=== PATIENT | male | born 1950 | race Caucasian/White ===

== ENCOUNTER → 2018-03-23 | Outpatient (CLI) | payer MEDICARE, BC ==
[2013-06-27 12:50] VITALS: BP 144/79
[~2018-03-23] MED LIST: AMLO1TAB14 PO; ATOR40TA59 PO; CELE200C PO; CYCL10TA2 PO; DIPH25CA58 PO; DOCU-109 PO; LORA10TA3 PO; METO100T7 PO; MULT-245 PO; OMEP20TA8 PO; OXYC1TAB15 PO; ROPI1TAB PO; TRIA10.8 NS; VITA80003 PO; methylPREDNISolone ACETATE 40 MG/ML VIAL. IM ONE
--- NOTE | 2018-03-23 15:05 | KCIC ---
ULTRASOUND-GUIDED BICEPS TENDON INJECTION Clinical indications: Upper right arm pain and bicipital groove tenderness. Biceps tendinitis. PROCEDURE: The procedure and possible complications including bleeding and infection and allergic reaction were explained. The patient provided both verbal and written consent. A timeout was performed which confirmed the name of the patient and date of and the type of the procedure and the side of the procedure. All questions were answered. Allergies to medications were reviewed. No allergies to medications utilized today. Sonography of the upper right arm was performed which identified the biceps tendon within the bicipital groove. Appropriate skin elbert was made. This area was prepped and draped in the usual sterile fashion with Betadine. 2 cc of 1% lidocaine was utilized for local anesthesia. Using sterile technique and ultrasound guidance, a 25-gauge needle was directed down into the posterior edge of the bicipital groove. 2 cc of 1% lidocaine was injected under ultrasound guidance. Following this, 40 mg of Depo-Medrol in 1 cc was injected into the tendon sheath under ultrasound surveillance. Sonographic spot images were performed. The needle was removed and hemostasis was deemed adequate. Sterile Band-Aid was applied to the puncture site after cleaning of the upper right arm. The patient tolerated the procedure well without complication. IMPRESSION: Ultrasound-guided upper right arm biceps tendon sheath injection was performed without complication. Electronically signed by: Dutch Rosales MD (03/23/2018 3:02 PM) [facility]2
== END | disposition home or self-care (01) ==
LOC: KCIC US 13:50
PROVIDERS: ATTEND Orthopaedic Surgery Sports Medicine
DX: M75.21 Bicipital tendinitis, right shoulder (principal); I10 Essential (primary) hypertension; J44.9 Chronic obstructive pulmonary disease, unspecified; Z88.2 Allergy status to sulfonamides; Z88.5 Allergy status to narcotic agent; Z98.890 Other specified postprocedural states; Z87.442 Personal history of urinary calculi
CPT/HCPCS: 20550; 76942; J1030; 20611

== ENCOUNTER → 2019-03-16 | Outpatient (CLI) | payer MEDICARE, BC ==
[2013-06-27 12:50] VITALS: BP 144/79
[~2019-03-16] MED LIST changes: +LOPE2TAB27 PO; +NAPR220T70 PO; -methylPREDNISolone ACETATE 40 MG/ML VIAL. IM ONE
--- NOTE | 2019-03-16 18:52 | KCIC ---
ULTRASOUND-GUIDED BICEPS TENDON SHEATH INJECTION ON THE RIGHT SIDE Clinical indications: Upper right arm pain and bicipital groove tenderness. Biceps tendinitis. PROCEDURE: The procedure and possible complications including bleeding and infection and allergic reaction were explained. The patient provided both verbal and written consent. A timeout was performed which confirmed the name of the patient and date of and the type of the procedure and the side of the procedure. All questions were answered. Allergies to medications were reviewed. No allergies to medications utilized today. Sonography of the upper right arm was performed which identified the biceps tendon within the bicipital groove. Appropriate skin elbert was made. This area was prepped and draped in the usual sterile fashion with Betadine. 2 cc of 1% lidocaine was utilized for local anesthesia. Using sterile technique and ultrasound guidance, a 25-gauge needle was directed down into the posterior edge of the bicipital groove. A solution containing 1 cc of 1% lidocaine and 1 cc of 0.5% Marcaine and 1 cc (40 mg) of Depo-Medrol was injected into the tendon sheath under ultrasound surveillance. Sonographic spot images were performed. The needle was removed and hemostasis was deemed adequate. Sterile Band-Aid was applied to the puncture site after cleaning of the upper right arm. The patient tolerated the procedure well without complication and was given instructions to refrain from heavy lifting tonight. IMPRESSION: Ultrasound-guided upper right arm biceps tendon sheath injection was performed without complication. Follow-up will be with the patient's physician. ULTRASOUND-GUIDED BICEPS TENDON INJECTION ON THE LEFT SIDE Clinical indications: Upper left arm pain and bicipital groove tenderness. Biceps tendinitis. PROCEDURE: The procedure and possible complications including bleeding and infection and allergic reaction were explained. The patient provided both verbal and written consent. A timeout was performed which confirmed the name of the patient and date of and the type of the procedure and the side of the procedure. All questions were answered. Allergies to medications were reviewed. No allergies to medications utilized today. Sonography of the upper left arm was performed which identified the biceps tendon within the bicipital groove. Appropriate skin elbert was made. This area was prepped and draped in the usual sterile fashion with Betadine. 2 cc of 1% lidocaine was utilized for local anesthesia. Using sterile technique and ultrasound guidance, a 25-gauge needle was directed down into the posterior edge of the bicipital groove. A solution containing 1 cc of 1% lidocaine and 1 cc of 0.5% Marcaine and 1 cc (40 mg) of Depo-Medrol was injected into the tendon sheath under ultrasound surveillance. Sonographic spot images were performed. The needle was removed and hemostasis was deemed adequate. Sterile Band-Aid was applied to the puncture site after cleaning of the upper left arm. The patient tolerated the procedure well without complication and was given instructions to refrain from heavy lifting tonight. IMPRESSION: Ultrasound-guided upper left arm biceps tendon sheath injection was performed without complication. Follow-up will be with the patient's physician. Electronically signed by: Dutch Rosales MD (03/16/2019 4:09 PM) [facility]-KCIC2
== END | disposition home or self-care (01) ==
LOC: KCIC US 13:12
PROVIDERS: ATTEND Orthopaedic Surgery Sports Medicine
DX: M75.22 Bicipital tendinitis, left shoulder (principal); M75.21 Bicipital tendinitis, right shoulder
CPT/HCPCS: 20550; 20611; 76942

== ENCOUNTER → 2019-03-21 | Outpatient (CLI) | payer MEDICARE, BC ==
[2013-06-27 12:50] VITALS: BP 144/79
[2019-03-21 09:38] LABS: BASO # 0.1 x10^3/uL (0.0-0.2); BASO % 1 % (0-3); EOS # 0.3 x10^3/uL (0.0-0.7); EOS % 4 % (0-3); HEMATOCRIT 43.2 % (39.0-53.0); HEMOGLOBIN 14.7 g/dL (13.0-17.5); LYMPH # 3.4 x10^3/uL (1.0-4.8); LYMPH % 42 % (24-48); MEAN CORPUSCULAR HEMOGLOBIN 30 pg (25-35); MEAN CORPUSCULAR HGB CONC 34 g/dL (31-37); MEAN CORPUSCULAR VOLUME 89 fL (79-100); MONO # 0.7 x10^3/uL (0.0-1.1); MONO % 8 % (0-9); NEUT # 3.6 x10^3/uL (1.8-7.7); NEUT % 44 % (31-73); PLATELET COUNT 223 x10^3/uL (140-400); RED BLOOD COUNT 4.88 x10^6/uL (4.30-5.70); RED CELL DISTRIBUTION WIDTH 13.3 % (11.5-14.5)
[2019-03-21 09:47] LABS: PROTHROMBIN TIME PATIENT 13.2 SEC (11.7-14.0)
[2019-03-21 10:20] LABS: ALBUMIN 3.9 g/dL (3.4-5.0); CALCIUM 9.1 mg/dL (8.5-10.1); GFR 74.1; POTASSIUM 3.5 mmol/L (3.5-5.1)
--- NOTE | 2019-03-21 13:03 | EKG ---
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
--- NOTE | 2019-03-21 15:52 | RAD ---
AP and Lateral Views of the Chest 03/21/2019 8:59 AM Indication: Preoperative Comparison: None Findings: Linear opacity either in the lingula or middle lobe suggesting discoid atelectasis. No other acute consolidation or infiltrate is seen. No pneumothorax or effusion is seen. Heart size is normal. Bony thorax is intact. IMPRESSION: Discoid atelectasis either within the lingula or lobe. Otherwise no evidence of acute cardiopulmonary process. Electronically signed by: Prashanth Rios MD (03/21/2019 3:19 PM) [facility]
== END | disposition home or self-care (01) ==
LOC: SURGPAT 13:08
PROVIDERS: ATTEND Orthopaedic Surgery Sports Medicine
DX: Z01.818 Encounter for other preprocedural examination (principal); M17.11 Unilateral primary osteoarthritis, right knee; J98.4 Other disorders of lung; Z79.2 Long term (current) use of antibiotics
CPT/HCPCS: 36415; 71046; 80048; 82040; 82306; 83036; 85025; 85610; 85651; 85730; 87641; 93005

== ENCOUNTER 2019-04-11 06:07 | Inpatient (IN) | payer MEDICARE, BC ==
[2019-04-11] VITALS (7 sets, daily range): BP systolic 128–158; BP diastolic 70–83
[~2019-04-11] VITALS: Ht 177.8 cm; Wt 98.4 kg
[~2019-04-11 06:07] MED LIST changes: +ACETAMINOPHEN 500 MG TABLET PO PRN; +GABAPENTIN 300 MG CAPSULE. PO PRN; +MELOXICAM 7.5 MG TABLET PO PRN; +MORPHINE SULFATE 5 MG, KETOROLAC 30MG VIAL 30 MG, ROPIVacaine 0.5% PF 60 ML, EPINEPHrin... INT ART ONE; +TRANEXAMIC ACID 1,000 MG in IV NS 50ML -- 1ST BAG INJ ONE
[2019-04-11] MEDS ORDERED: CELECOXIB 100 MG CAPSULE. ONE (06:27)
[2019-04-11] MEDS ORDERED: PROCHLORPERAZINE 10 MG/2 ML VIAL. IV PRN (07:00)
[2019-04-11] MEDS ORDERED: fentaNYL PF VIAL 100 MCG/2 ML VIAL IV PRN ×2 (07:00→07:45)
[2019-04-11] MEDS ORDERED: LIDOCAINE 1% PF 2 ML VIAL. ID PRN (07:00)
[2019-04-11] MEDS ORDERED: ONDANSETRON PF 4 MG/2 ML VIAL. IV PRN (07:00)
[2019-04-11] MEDS ORDERED: IV RINGERS,LACTATED 1000ML 1,000 ML IV SCH (07:00)
[2019-04-11] MEDS ORDERED: HYDROmorphone 2 MG/ML VIAL IV PRN (07:00)
[2019-04-11] MEDS ORDERED: LIDOCAINE 2% PF 5 ML VIAL. ONE (07:12)
[2019-04-11] MEDS ORDERED: fentaNYL PF VIAL 100 MCG/2 ML VIAL ONE (07:12)
[2019-04-11] MEDS ORDERED: DEXAMETHASONE SOD PHOS 4 MG/ML VIAL ONE (07:12)
[2019-04-11] MEDS ORDERED: ONDANSETRON PF 4 MG/2 ML VIAL. ONE (07:12)
[2019-04-11] MEDS ORDERED: PROPOFOL 20 ML IV ONE (07:12)
[2019-04-11] MEDS: CELECOXIB 100 MG CAPSULE. PO SCH ×2 (07:26→21:05)
[2019-04-11] MEDS: GABAPENTIN 300 MG CAPSULE. PO SCH ×3 (07:32→21:06)
[2019-04-11] MEDS ORDERED: IV NORMAL SALINE 1000ML BAG 1,000 ML IV SCH (07:37)
[2019-04-11] MEDS ORDERED: diphenhydrAMINE 50 MG/ML VIAL IV PRN (07:45)
[2019-04-11] MEDS ORDERED: METOCLOPRAMIDE HCL 10 MG/2 ML VIAL. IV PRN (07:45)
[2019-04-11] MEDS ORDERED: MORPHINE SULFATE 2 MG/ML VIAL. IV PRN (07:45)
[2019-04-11] MEDS ORDERED: PROCHLORPERAZINE 5 MG TABLET. PO PRN (07:45)
[2019-04-11] MEDS ORDERED: ZOLPIDEM 5 MG TABLET. PO PRN (07:45)
[2019-04-11] MEDS ORDERED: CALCIUM CARBONATE 500 MG TAB.CHEW PO PRN (07:45)
[2019-04-11] MEDS ORDERED: DEXTROSE 50% 25 GM / 50ML DISP.SYRIN. IV PRN (07:45)
[2019-04-11] MEDS ORDERED: 0.9 % SODIUM CHLORIDE 10 ML DISP.SYRIN. IV PRN (07:45)
[2019-04-11 07:46] LABS: PROTHROMBIN TIME PATIENT 13.1 SEC (11.7-14.0)
[2019-04-11] MEDS ORDERED: GLYCOPYRROLATE 1 MG/5 ML VIAL. ONE (07:59)
[2019-04-11] MEDS: INSULIN LISPRO 300 UNITS/3 ML VIAL. SQ SCH ×3 (08:00→17:23)
[2019-04-11] MEDS ORDERED: TRANEXAMIC ACID 1,000 MG in IV NS 50ML -- 2ND BAG INJ ONE (08:00)
[2019-04-11] MEDS: LOSARTAN POTASSIUM 50 MG TABLET. PO SCH (09:00)
[2019-04-11] MEDS ORDERED: VALSARTAN PO SCH (09:00)
[2019-04-11] MEDS: LOPERAMIDE 2 MG CAPSULE PO SCH ×2 (09:00→21:06)
[2019-04-11] MEDS ORDERED: METOPROLOL TARTRATE 100 MG PO SCH (09:00)
[2019-04-11] MEDS ORDERED: MULTIVITAMIN with MINERAL TABLET. PO SCH (09:00)
[2019-04-11] MEDS: amLODIPine BESYLATE 5 MG TABLET PO SCH (09:00)
[2019-04-11] MEDS ORDERED: AMLODIPINE PO SCH (09:00)
[2019-04-11] MEDS ORDERED: ePHEDrine PF IN SALINE 50 MG/10 ML SYRINGE. IV ONE (09:13)
[2019-04-11] MEDS ORDERED: SEVOFLURANE 61 TO 120 MINUTES. IH ONE (09:13)
[2019-04-11] MEDS ORDERED: PHENYLEPHRINE in 0.9% NACL PF 1 MG/10 ML SYRINGE. IV ONE (09:13)
--- NOTE | 2019-04-11 09:38 | PDOC4 ---
Operative Note Operative Note Date of procedure: 04/11/19 Surgeon: Topher Escalante.: Travis Bernal, BLAS Ramirez Preoperative diagnosis: Advanced primary right knee degenerative joint disease Postoperative diagnosis: Same Procedure performed: Right total knee arthroplasty, using robotic assistance Anesthesia: Gen. Findings: Advanced primary right knee degenerative joint disease Tourniquet time: 69 minutes Blood loss: 75 mL Complications: None Components inserted: Downs and nephew size 7 Journey II cobalt chrome right femur, 23 mm biconvex patella, 9 mm thick polyethylene articular insert, size 5 journey tibial baseplate Reason for procedure: Patient is a very pleasant male whose right knee has been hurting more and interfering with his activities of daily living. He had undergone a left knee arthroplasty in the past. We had tried a rehabilitation program, intra-articular injections, and despite these interventions his pain was still severe progressive and therefore we had a discussion of the risks, benefits, and alternatives to proceeding with the right side today and he wished to do this. Description of procedure: Patient was greeted in the preoperative holding area by myself for the correct extremity was verified and marked. He was taken back to the operative suite and his antibiotics were started as he was brought back. Once in the operating room, he was transferred gently supine to the operative table and secured the bed with successful induction of a general anesthetic. All pressure points were padded. Examination under anesthesia demonstrated range of motion from 5 to 140. Knee was stable to varus and valgus. Nonsterile tourniquet was taped in place to his right upper thigh. Padded rest was secured to the bed at his hip as well as across foot of the bed to maintain his leg at 90 passively. Right lower extremity was then prepped and draped in our usual sterile fashion including an Ioban [place]on. We then conducted our standard preoperative timeout. I then palpated and marked surface anatomy and chanel a line from my standard anterior midline skin incision. Extremity was exsanguinated with an Esmarch and tourniquet was insufflated to 250 mmHg. Skin was incised with a scalpel and dissected subcutaneous tissue and cauterized bleeders with electrocautery. I identified his quadriceps tendon, borders of her patellar patellar tendon and tibial tubercle. I then made my standard medial parapatellar arthrotomy. The knee was then flexed and the cruciates were excised. I then palpated and marked Whitesides line and the epicondylar axis with electrocautery. After this, I placed my robotic guidance pins unit cortically at the distal femur and tibia. I made stab incisions and spread down to bone and then placed the pins unicortically under power. After this, I proceeded with capturing range of motion and testing stability as well as the hip center of rotation using the robotic assistance. I then painted the distal femur and proximal tibia until enough data had been gathered. I then confirmed the robotic plan, making some small adjustments to the femoral component flexion. After this, I used the rica to remove the distal femur followed by burring my holes for my distal femoral cutting block, I then impacted the stylus in these as well. After this, I impacted my distal femoral 5 in 1 cutting block and secured it with threaded pins and made my distal femoral cuts. I then removed the cutting block and the loose bony pieces. I next directed my attention to using the top hat on the robotic rica, and using this to guide placement of my proximal tibial cutting block which I then pinned into position. I protected the collaterals and had a posterior retractor and is well. I made my proximal tibial cut and deliver this from the operative field. I then proceeded to trial the above size tibial baseplate, I selected the 5. I then impacted this into position referencing his tibial tubercle for rotation. I then drilled and punched for the tibial baseplate. I then directed my attention back to the femur and impacted my trial femoral component position, secured it with a pin and reamed and punched for the cam portion. I then applied and secured the cam portion in place. After this, I trialed the 9 mm trial polyethylene and was happy with the range of motion and stability. Range of motion was 0-140. Knee was stable to varus and valgus in extension and mid flexion. I then directed my attention to reaming for my patella, with all components and he had full range of motion, good stability and excellent patellar tracking. I then removed all trial components and thoroughly irrigated the bony surfaces and then proceeded to cement in place the tibial component followed by the femoral component. Care was taken to remove excess cement. A trial articular insert was then engaged into position and the cement was allowed to polymerize with the leg in extension. I again checked for any excess cement. The patellar button was clamped in place and secured with cement. I then injected my periarticular mixture into the janie-incisional soft tissue envelope. The tourniquet was let down, bleeders were cauterized. He had a fair amount of oozing from the exposed bony surfaces and I elected to place a 1/8 inch Hemovac exiting superolaterally from her knee. After this, the arthrotomy was closed with simple interrupted #1 Vicryl with the exception of a xdimim-en-greyb proximally. Arthrotomy closure tested in flexion and no extravasation of blood was noted. Inverted interrupted 2 was used for subcutaneous tissue and running 3 -0 Monocryl in a buried subcuticular fashion was used for skin. Prior to wound closure all counts correct 2. At the conclusion of the surgery, leg was cleansed and dried and our incisional wound vacuum was applied. Surgery was tolerated well by the patient. He was awakened from anesthesia and transferred gently supine to the hospital bed and taken to the PACU in a stable and extub ated condition. Postoperative plan is to admit him to the floor, weightbearing as tolerated, he will receive DVT and antibiotic prophylaxis. He will also receive PT and OT. TOPHER FELIPE II, MD Apr 11, 2019 09:37
[2019-04-11] MEDS: fentaNYL PF VIAL 100 MCG/2 ML VIAL IV PRN ×2 (10:31→10:37)
[2019-04-11] MEDS: MORPHINE SULFATE 2 MG/ML VIAL. IV PRN ×2 (10:41→10:57)
--- NOTE | 2019-04-11 10:50 | RAD ---
2 view study of the right knee Clinical indications: Postoperative exam. FINDINGS: Total right knee arthroplasty is evident which is well aligned. No acute fracture or lytic process is seen. IMPRESSION: Total right knee arthroplasty. Electronically signed by: Dutch Rosales MD (04/11/2019 10:47 AM) [facility] [place]
--- NOTE | 2019-04-11 11:36 | NUR ---
received from recovery. he has a dry hacky cough.he has good sensation, pulses and motion bilateral lower extremities. at bedside He is rating his pain 4-5". Addendum: 04/11/19 at 1242 by ANGELINA VARELA RN Riky ramos diabetic
[2019-04-11] MEDS ORDERED: BENZOCAINE/MENTHOL LOZENGE. PO PRN (11:45)
[2019-04-11] MEDS: ONDANSETRON PF 4 MG/2 ML VIAL. IV SCH ×2 (12:00→17:39)
[2019-04-11] MEDS: CHOLECALCIFEROL (VITAMIN D3) 5,000 UNIT CAPSULE PO SCH (12:56)
[2019-04-11] MEDS: MULTIVITAMIN with MINERAL TABLET. PO SCH (12:56)
[2019-04-11] MEDS: CETIRIZINE HCL 10 MG TABLET. PO SCH (12:56)
[2019-04-11] MEDS: SENNOSIDES/DOCUSATE 8.6/50MG TABLET. PO SCH (12:56)
[2019-04-11] MEDS: ONDANSETRON ODT 4 MG TAB.RAPDIS. PO SCH ×2 (12:56→17:22)
[2019-04-11] MEDS: oxyCODONE IR 5 MG TABLET PO PRN ×3 (12:57→22:49)
--- NOTE | 2019-04-11 13:10 | NUR ---
haylie is more awake and oriented. states that his bood sugar was high the last time that his blood was checked pre-admission. was placed on metformin which triggered his Crohn's and caused more problems. was taken off metformin and not placed on anything. explained that would check his blood sugar prior to supper. possibility it is up because of the steroid. might give insulin until bood sugar regulated--verbalized understanding
[2019-04-11] MEDS ORDERED: WARFARIN 7.5 MG TABLET. PO ONE (16:00)
[2019-04-11] MEDS: FERROUS SULFATE 325 MG TABLET. PO SCH (17:21)
--- NOTE | 2019-04-11 18:36 | NUR ---
AMBULATED TO THE BATHROOM TO VOID. UNABLE TO URINATE AT THIS TIME. TOLERATED SUPPER WELL. HE IS RATING HIS PAIN A "4" AT THIS TIME.
--- NOTE | 2019-04-11 20:15 | NUR ---
pt stated been attempting to urinate feeling bladder pressure stated has not voided for 15 hours last time he voids before surgery bladder scan done showing greater than 999ml straight cath patient per protocol using aseptic technique obtained 1400ml yellow urine
[2019-04-11] MEDS: METOPROLOL TART IMMED RELEASE 50 MG TABLET. PO SCH (21:00)
[2019-04-11] MEDS ORDERED: ATORVASTATIN CALCIUM 40 MG TABLET. PO SCH (21:00)
[2019-04-11] MEDS: rOPINIRole 1 MG TABLET. PO SCH (21:06)
[2019-04-12 02:52] VITALS: BP 147/73
[2019-04-12 05:02] LABS: HEMATOCRIT 35.3 % (39.0-53.0)
[2019-04-12 05:05] LABS: PROTHROMBIN TIME PATIENT 14.5 SEC (11.7-14.0)
[2019-04-12] MEDS: ONDANSETRON ODT 4 MG TAB.RAPDIS. PO SCH ×2 (06:00)
[2019-04-12] MEDS ORDERED: MAGNESIUM HYDROXIDE 2,400 MG/30 ML ORAL.SUSP. PO PRN (06:00)
[2019-04-12] MEDS: ONDANSETRON PF 4 MG/2 ML VIAL. IV SCH ×2 (06:00)
[2019-04-12 06:26] VITALS: BP 135/72
[2019-04-12] MEDS: PANTOPRAZOLE 40 MG TABLET.DR. PO SCH (07:01)
[2019-04-12] MEDS: INSULIN LISPRO 300 UNITS/3 ML VIAL. SQ SCH ×3 (08:00→17:00)
[2019-04-12] MEDS: FERROUS SULFATE 325 MG TABLET. PO SCH ×2 (08:24→17:00)
[2019-04-12] MEDS: GABAPENTIN 300 MG CAPSULE. PO SCH ×3 (08:25→21:00)
[2019-04-12] MEDS: CHOLECALCIFEROL (VITAMIN D3) 5,000 UNIT CAPSULE PO SCH (08:25)
[2019-04-12] MEDS: CELECOXIB 100 MG CAPSULE. PO SCH ×2 (08:25→08:45)
[2019-04-12] MEDS: ATORVASTATIN CALCIUM 40 MG TABLET. PO SCH (08:26)
[2019-04-12] MEDS: ACETAMINOPHEN 500 MG TABLET PO SCH ×3 (08:26→21:01)
[2019-04-12] MEDS: MULTIVITAMIN with MINERAL TABLET. PO SCH (08:26)
[2019-04-12] MEDS: LOPERAMIDE 2 MG CAPSULE PO SCH ×2 (08:26→21:00)
[2019-04-12] MEDS: METOPROLOL TART IMMED RELEASE 50 MG TABLET. PO SCH (08:29)
[2019-04-12] MEDS: oxyCODONE IR 5 MG TABLET PO PRN ×2 (08:29→11:59)
--- NOTE | 2019-04-12 08:39 | PDOC ---
ORTHO PROGRESS NOTES Subjective Patient feels like he is doing well, he underwent a right total knee arthroplasty yesterday. No particular concerns Vitals Vital Signs Date Time Temp Pulse Resp B/P (MAP) Pulse Ox O2 Delivery O2 Flow Rate FiO2 04/12/19 06:26 98.0 82 16 135/72 (93) 100 Nasal Cannula 2.0 98.0 Labs Laboratory Tests Test 04/11/19 07:00 04/11/19 17:08 04/11/19 20:46 04/12/19 04:45 Prothrombin Time 13.1 SEC (11.7-14.0) 14.5 SEC (11.7-14.0) Prothromb Time International Ratio 1.0 (0.8-1.1) 1.2 (0.8-1.1) Activated Partial Thromboplast Time 36 SEC (24-38) Glucose (Fingerstick) 156 mg/dL (70-99) 174 mg/dL (70-99) Hemoglobin 12.0 g/dL (13.0-17.5) Hematocrit 35.3 % (39.0-53.0) Mean Corpuscular Hemoglobin Concent 34 g/dL (31-37) Test 04/12/19 06:20 Glucose (Fingerstick) 123 mg/dL (70-99) Laboratory Tests Test 04/11/19 17:08 04/11/19 20:46 04/12/19 04:45 04/12/19 06:20 Glucose (Fingerstick) 156 mg/dL (70-99) 174 mg/dL (70-99) 123 mg/dL (70-99) Hemoglobin 12.0 g/dL (13.0-17.5) Hematocrit 35.3 % (39.0-53.0) Mean Corpuscular Hemoglobin Concent 34 g/dL (31-37) Prothrombin Time 14.5 SEC (11.7-14.0) Prothromb Time International Ratio 1.2 (0.8-1.1) Notes He is awake and alert and lying in bed. Dressing is intact and fairly dry. He can wiggle his toes, normal sensation right lower extremity. Assessment and Plan He will continue Coumadin, PT and OT today. We will adjust his pain medicine as necessary. We will changes admission status to inpatient. I appreciate his primary care provider been willing to assist with his postoperative care. FLOYD FELIPE II, MD Apr 12, 2019 08:39
[2019-04-12] MEDS: LOSARTAN POTASSIUM 50 MG TABLET. PO SCH ×2 (08:44→21:02)
[2019-04-12] MEDS: SENNOSIDES/DOCUSATE 8.6/50MG TABLET. PO SCH (08:44)
[2019-04-12] MEDS: amLODIPine BESYLATE 5 MG TABLET PO SCH ×2 (08:44→21:06)
[2019-04-12] MEDS: CETIRIZINE HCL 10 MG TABLET. PO SCH ×2 (08:45→21:00)
--- NOTE | 2019-04-12 11:07 | NUR ---
Pharmacy Warfarin Dosing Note S:Pharmacy consulted to assist with anticoagulation therapy started 04/11/19 with target INR: 1.6 - 2.5 O:CARLOS SPRING is a 68 year old M with TKA LABS: Last INR: 1.2 Last HGB: 12.0 Last HCT: 35.3 Last PLT: Last dose of 7.5 mg given on 04/11/19 at 1721 Previous Regimen: Vitamin K given: Drug Interaction Changes: Ongoing Drug Interactions: A:INR of 1.2 is below desired range. Target range for this patient is: 1.6 - 2.5 P: Warfarin dose: 5 mg Today at 1600 Bridge Therapy: None Next INR due 04/13/19. Pharmacy anticoagulation service will continue to follow. BAILEE KURTZ RPH, 04/12/19 [id number]
[2019-04-12] MEDS ORDERED: ONDANSETRON ODT 4 MG TAB.RAPDIS. PO PRN (12:00)
[2019-04-12] MEDS ORDERED: ONDANSETRON PF 4 MG/2 ML VIAL. IV PRN (12:00)
[2019-04-12] MEDS ORDERED: BISACODYL 10 MG SUPP.RECT. PR PRN (16:00)
[2019-04-12] MEDS ORDERED: WARFARIN 5 MG TABLET. PO ONE (16:00)
[2019-04-12 18:00] VITALS: BP 148/72
--- NOTE | 2019-04-12 19:30 | NUR ---
Riky is sitting up in recliner. he Hemovac accidently got pulled apart earlier. Hemovac removed ; tolerated well. cleansed with chlor prep then Aquacel foam applied. he is rating his pain 4-5. medicated with thomas. bilateral Willie hose applied. he has good sensation, pulses and motion bilateral lower extremities.
[2019-04-12] MEDS: rOPINIRole 1 MG TABLET. PO SCH (21:00)
--- NOTE | 2019-04-12 23:24 | NUR ---
states he is still uncomfortable. pain unchanged. medicated with morphine 2 mg. ready for bed.
[2019-04-13] MEDS: ACETAMINOPHEN 500 MG TABLET PO SCH ×4 (02:09→21:05)
[2019-04-13] MEDS: oxyCODONE IR 5 MG TABLET PO PRN ×5 (02:10→21:06)
--- NOTE | 2019-04-13 03:58 | CONS ---
DATE OF CONSULTATION: 04/12/2019 CHIEF COMPLAINT AND HISTORY OF PRESENT ILLNESS: This 68-year-old white male is well known to me from followup in the office for many years. He was admitted on the day prior to admission for right total knee replacement by Dr. Gallegos for end-stage osteoarthritis. He was medically cleared through my office before the same. PAST MEDICAL HISTORY: Remarkable for glasses, bilateral cataract surgery, history of prior C3-C4 laminectomy. He has a history of Crohn's disease, kidney stones, bilateral carpal tunnel repairs, bilateral rotator cuff repairs and prior inguinal hernia repair. MEDICATIONS: Brought with the patient, listed on the computer and have been addressed. ALLERGIES: HE IS ALLERGIC TO SULFA. FAMILY HISTORY: Positive for lung cancer, breast cancer, hypertension. SOCIAL HISTORY: Noncontributory. REVIEW OF SYSTEMS: Remarkable for decent pain control following surgery, still has regional anesthesia in the legs though at the time of my examination the morning after surgery. PHYSICAL EXAMINATION: GENERAL: He is a well-developed, well-nourished white male in no acute distress. VITAL SIGNS: Stable. He is afebrile. HEAD, EYES, EARS, NOSE AND THROAT: Unremarkable. NECK: Supple, without thyromegaly. CHEST: Clear to auscultation and percussion. HEART: Regular rate and rhythm without S3, S4 or murmur. ABDOMEN: Soft, nontender, without hepatosplenomegaly or masses. EXTREMITIES: Without cyanosis, clubbing, edema. NEUROLOGIC: He is intact. LABORATORY DATA: Hemoglobin is 12.0 this morning. Sugars have been in the 120s. INR is 1.2. IMPRESSION: 1. Status post right total knee replacement, on anticoagulation. 2. Postoperative anemia, mild. 3. Crohn's disease. 4. Other problems listed above. PLAN: We will follow with you medically postoperative period for problems as they could arise. TAI ZAMBRANO MD DR: LUPE/emely JOB#: [id number] / [id number] FLOYD Staton MD
[2019-04-13 06:00] VITALS: BP 143/75
--- NOTE | 2019-04-13 06:38 | NUR ---
patient had a restless night. up to the bathroom every 2-3 hrs . states "I dont get up this much as home. appears to void large amount. ambulated to the bathroom ; states he feels like he empties his bladder.
[2019-04-13] MEDS: INSULIN LISPRO 300 UNITS/3 ML VIAL. SQ SCH ×3 (08:00→17:00)
[2019-04-13] MEDS: LOPERAMIDE 2 MG CAPSULE PO SCH ×2 (09:00→21:00)
[2019-04-13] MEDS: SENNOSIDES/DOCUSATE 8.6/50MG TABLET. PO SCH (09:00)
[2019-04-13] MEDS: TAMSULOSIN 0.4 MG CAP.ER.24H. PO SCH (09:17)
[2019-04-13] MEDS: CHOLECALCIFEROL (VITAMIN D3) 5,000 UNIT CAPSULE PO SCH (09:19)
[2019-04-13] MEDS: CELECOXIB 100 MG CAPSULE. PO SCH (09:19)
[2019-04-13] MEDS: GABAPENTIN 300 MG CAPSULE. PO SCH ×3 (09:19→21:04)
[2019-04-13] MEDS: ATORVASTATIN CALCIUM 40 MG TABLET. PO SCH (09:19)
[2019-04-13] MEDS: MULTIVITAMIN with MINERAL TABLET. PO SCH (09:19)
[2019-04-13] MEDS: FERROUS SULFATE 325 MG TABLET. PO SCH ×2 (09:19→16:44)
[2019-04-13] MEDS: METOPROLOL TART IMMED RELEASE 50 MG TABLET. PO SCH (09:22)
[2019-04-13 10:06] LABS: HEMATOCRIT 37.9 % (39.0-53.0); HEMOGLOBIN 12.9 g/dL (13.0-17.5)
[2019-04-13 10:17] LABS: PROTHROMBIN TIME PATIENT 15.1 SEC (11.7-14.0)
--- NOTE | 2019-04-13 11:07 | NUR ---
Pharmacy Warfarin Dosing Note S:Pharmacy consulted to assist with anticoagulation therapy started 04/11/19 with target INR: 1.6 - 2.5 O:CARLOS SPRING is a 68 year old M with TKA LABS: Last INR: 1.2 Last HGB: 12.9 Last HCT: 37.9 Last PLT: Last dose of 5 mg given on 04/12/19 at 1645 Previous Regimen: Vitamin K given: Drug Interaction Changes: Ongoing Drug Interactions: A:INR of 1.2 is below desired range. Target range for this patient is: 1.6 - 2.5 P: Warfarin dose: 5 mg Today at 1600 Bridge Therapy: None Next INR due 04/14/19. Pharmacy anticoagulation service will continue to follow. BAILEE KURTZ RPH, 04/13/19 [id number]
--- NOTE | 2019-04-13 12:26 | DISCH ---
DISCHARGE INSTRUCTIONS Condition on Discharge Condition on Discharge: Stable Activity After Discharge Activity Instructions for Disc: Other, see below Bathing Instructions: No Tub Bath until see Lifting Instructions after Dis: No heavy lifting, No pulling or pushing, Do not lift >10 pounds Exercise Instruction after Dis: Walk 10 min, 3 x per day, Walk 15 min, 3 x per day, Walk 30 min, 3 x per week Diet after Discharge Diet after Discharge: Regular Wound Incision Care Wound/Incision Care: Ice to area for comfort, Keep wound/cast CDI, Do not abebe e dressing Contacting the after DC Call your doctor for: Concerns you may have Follow-Up Follow up with: Rosy in 2 wks Warfarin Follow-Up Warfarin Follow UP: Pharmacy FLOYD FELIPE II, MD Apr 13, 2019 12:26
[2019-04-13] MEDS ORDERED: WARFARIN 5 MG TABLET. PO ONE (16:00)
--- NOTE | 2019-04-13 17:06 | PATHOLOGY ---
[facility] Accession Number: [id number] . 01 Material submitted: . knee - RIGHT KNEE BONE AND SOFT TISSUE. Modifiers: right . 01 Clinical history: . Osteoarthritis . 02 Diagnosis: Segments of bone and soft tissue, robotic right total knee arthroplasty: - Degenerative arthritis. (JPM:[facility] 04/13/2019) QTP 04/13/2019 1310 Local . 02 Electronically signed: . Epi Millan MD, Pathologist NPI- [id number] . 01 Gross description: . The specimen is received in formalin, labeled "Corey Molina, right knee bone and soft tissue". Received are multiple segments of bone, including a fragmented tibial plateau, admixed with soft tissue and meniscus measuring 12.8 x 12.2 x 3.5 cm in aggregate dimensions. The articular surfaces are smooth to granular in appearance with no grossly distinct evidence of eburnation. The specimen is submitted representatively in cassette A1, following decalcification. (CAA; 04/12/2019) QAC/QAC 04/12/2019 1103 Local . 02 Pathologist provided ICD-10: M17.11 . 02 CPT . 256873, 316073 Specimen Comment: A courtesy copy of this report has been sent to [phone], [phone] Specimen Comment: [id number] Specimen Comment: Report sent to / DR ZAMBRANO Performed at: 01 [facility] [address], [place] [id number] MD Haroon Saeed MD Phone: [phone] Performed at: 02 [facility] [address] [place], [place] [id number] MD Epi iMllan MD Phone: [phone]
[2019-04-13 18:38] VITALS: BP 137/76
--- NOTE | 2019-04-13 18:44 | PDOC ---
GENERAL General: vss and afebrile. awake and alert. expected post op pain. chest clear, heart regular, abdomen benign. Hb 12.9 and INR 1.2 this am. bph symptoms with frequent urination and will add flomax trial. with elevated blood sugars will check HbA1C as diagnosis of diabetes was not known prior to admission. VITAL SIGNS/I&O Vital Signs/I&O: Vital Signs Date Time Temp Pulse Resp B/P (MAP) Pulse Ox O2 Delivery O2 Flow Rate FiO2 04/13/19 18:38 98.1 72 18 137/76 (96) 20 98.1 04/13/19 16:44 Room Air 04/12/19 08:30 2.0 I & O 04/12/19 04/12/19 04/13/19 15:00 23:00 07:00 Intake Total 480 ml 440 ml 100 ml Output Total 465 ml 375 ml Balance 15 ml 65 ml 100 ml ALLERGIES Allergies: Allergies Coded Allergies Type Severity Reaction Last Updated Verified Sulfa (Sulfonamide Antibiotics) Allergy Intermediate 04/11/19 Yes MEDS Medications: Current Medications Medications (Trade) Dose Ordered Sig/Kecia Route PRN Reason Start Time Stop Time Status Last Admin Dose Admin Amlodipine Besylate (Norvasc) 5 mg HS PO 04/12/19 21:00 04/12/19 21:06 Cetirizine HCl (ZyrTEC) 10 mg HS PO 04/12/19 21:00 04/12/19 21:00 Losartan Potassium (Cozaar) 100 mg HS PO 04/12/19 21:00 04/12/19 21:02 Tamsulosin HCl (Flomax) 0.4 mg DAILY PO 04/13/19 09:00 04/13/19 09:17 Warfarin Sodium (Coumadin) 5 mg 1X WARF ONCE PO 04/13/19 16:00 04/13/19 16:01 DC 04/13/19 16:40 LAB Lab: Laboratory Tests Test 04/12/19 20:49 04/13/19 07:33 04/13/19 09:43 04/13/19 11:57 Glucose (Fingerstick) 120 mg/dL (70-99) H 106 mg/dL (70-99) H 107 mg/dL (70-99) H Hemoglobin 12.9 g/dL (13.0-17.5) L Hematocrit 37.9 % (39.0-53.0) L Mean Corpuscular Hemoglobin Concent 34 g/dL (31-37) Prothrombin Time 15.1 SEC (11.7-14.0) H Prothrombin Time INR 1.2 (0.8-1.1) H Test 04/13/19 17:07 Glucose (Fingerstick) 114 mg/dL (70-99) H Laboratory Tests 04/13/19 09:43 TAI ZAMBRANO MD Apr 13, 2019 18:44
[2019-04-13] MEDS: LOSARTAN POTASSIUM 50 MG TABLET. PO SCH (21:04)
[2019-04-13] MEDS: rOPINIRole 1 MG TABLET. PO SCH (21:05)
[2019-04-13] MEDS: CETIRIZINE HCL 10 MG TABLET. PO SCH (21:05)
[2019-04-13] MEDS: amLODIPine BESYLATE 5 MG TABLET PO SCH (21:05)
[2019-04-14 02:08] LABS: HEMOGLOBIN A1C 6.8 % (4.8-5.6)
[2019-04-14] MEDS: oxyCODONE IR 5 MG TABLET PO PRN ×2 (04:14→13:08)
[2019-04-14] MEDS: ACETAMINOPHEN 500 MG TABLET PO SCH ×2 (04:14→07:56)
[2019-04-14 04:52] LABS: HEMATOCRIT 35.9 % (39.0-53.0); HEMOGLOBIN 12.1 g/dL (13.0-17.5)
[2019-04-14 05:03] LABS: PROTHROMBIN TIME PATIENT 15.7 SEC (11.7-14.0)
[2019-04-14 06:01] VITALS: BP 142/77
[2019-04-14] MEDS: PANTOPRAZOLE 40 MG TABLET.DR. PO SCH (07:56)
[2019-04-14] MEDS: CHOLECALCIFEROL (VITAMIN D3) 5,000 UNIT CAPSULE PO SCH (07:56)
[2019-04-14] MEDS: TAMSULOSIN 0.4 MG CAP.ER.24H. PO SCH (07:57)
[2019-04-14] MEDS: FERROUS SULFATE 325 MG TABLET. PO SCH (07:57)
[2019-04-14] MEDS: MULTIVITAMIN with MINERAL TABLET. PO SCH (07:57)
[2019-04-14] MEDS: GABAPENTIN 300 MG CAPSULE. PO SCH ×2 (07:57→13:08)
[2019-04-14] MEDS: SENNOSIDES/DOCUSATE 8.6/50MG TABLET. PO SCH (07:57)
[2019-04-14] MEDS: CELECOXIB 100 MG CAPSULE. PO SCH (07:58)
[2019-04-14] MEDS: INSULIN LISPRO 300 UNITS/3 ML VIAL. SQ SCH ×2 (08:00→11:42)
[2019-04-14] MEDS: METOPROLOL TART IMMED RELEASE 50 MG TABLET. PO SCH (08:02)
[2019-04-14] MEDS: ATORVASTATIN CALCIUM 40 MG TABLET. PO SCH (08:04)
[2019-04-14] MEDS: LOPERAMIDE 2 MG CAPSULE PO SCH (08:08)
--- NOTE | 2019-04-14 08:30 | PDOC ---
GENERAL General: vss and afebrile. awake and alert and sitting in chair. sugars good. HbA1C 6.8 and discussed diet, exercise, and weight loss with patient with meds if not controlling. urinating better with flomax. chest clear, heart regular, abdomen benign, nv status leg ok. anticipate dc today. doing well. VITAL SIGNS/I&O Vital Signs/I&O: Vital Signs Date Time Temp Pulse Resp B/P (MAP) Pulse Ox O2 Delivery O2 Flow Rate FiO2 04/14/19 08:02 88 160/94 04/14/19 06:01 97.8 24 93 Room Air 97.8 I & O 04/13/19 04/13/19 04/14/19 15:00 23:00 07:00 Intake Total 360 ml 480 ml Output Total 0 ml 0 ml Balance 360 ml 480 ml 0 ml ALLERGIES Allergies: Allergies Coded Allergies Type Severity Reaction Last Updated Verified Sulfa (Sulfonamide Antibiotics) Allergy Intermediate 04/11/19 Yes MEDS Medications: Current Medications Medications (Trade) Dose Ordered Sig/Kecia Route PRN Reason Start Time Stop Time Status Last Admin Dose Admin Tamsulosin HCl (Flomax) 0.4 mg DAILY PO 04/13/19 09:00 04/14/19 07:57 Warfarin Sodium (Coumadin) 5 mg 1X WARF ONCE PO 04/13/19 16:00 04/13/19 16:01 DC 04/13/19 16:40 LAB Lab: Laboratory Tests Test 04/13/19 09:43 04/13/19 11:57 04/13/19 17:07 04/14/19 04:40 Hemoglobin 12.9 g/dL (13.0-17.5) L 12.1 g/dL (13.0-17.5) L Hematocrit 37.9 % (39.0-53.0) L 35.9 % (39.0-53.0) L Mean Corpuscular Hemoglobin Concent 34 g/dL (31-37) 34 g/dL (31-37) Prothrombin Time 15.1 SEC (11.7-14.0) H 15.7 SEC (11.7-14.0) H Prothrombin Time INR 1.2 (0.8-1.1) H 1.3 (0.8-1.1) H Hemoglobin A1c 6.8 % (4.8-5.6) H Glucose (Fingerstick) 107 mg/dL (70-99) H 114 mg/dL (70-99) H Test 04/14/19 06:41 Glucose (Fingerstick) 97 mg/dL (70-99) Laboratory Tests 04/13/19 09:43 04/14/19 04:40 TAI ZAMBRANO MD Apr 14, 2019 08:30
--- NOTE | 2019-04-14 08:41 | PDOC3 ---
Discharge Summary Visit Information Date of Admission: Apr 11, 2019 Date of Discharge: Apr 14, 2019 Admitting Diagnosis: advanced right knee primary degenerative joint disease Brief Hospital Course Allergies Allergies Coded Allergies Type Severity Reaction Last Updated Verified Sulfa (Sulfonamide Antibiotics) Allergy Intermediate 04/11/19 Yes Vital Signs Vital Signs Date Time Temp Pulse Resp B/P (MAP) Pulse Ox O2 Delivery O2 Flow Rate FiO2 04/14/19 08:02 88 160/94 04/14/19 06:01 97.8 24 93 Room Air 97.8 Lab Results Laboratory Tests Test 04/12/19 11:07 04/12/19 16:27 04/12/19 20:49 04/13/19 07:33 Glucose (Fingerstick) 128 mg/dL (70-99) 117 mg/dL (70-99) 120 mg/dL (70-99) 106 mg/dL (70-99) Test 04/13/19 09:43 04/13/19 11:57 04/13/19 17:07 04/14/19 04:40 Hemoglobin 12.9 g/dL (13.0-17.5) 12.1 g/dL (13.0-17.5) Hematocrit 37.9 % (39.0-53.0) 35.9 % (39.0-53.0) Mean Corpuscular Hemoglobin Concent 34 g/dL (31-37) 34 g/dL (31-37) Prothrombin Time 15.1 SEC (11.7-14.0) 15.7 SEC (11.7-14.0) Prothromb Time International Ratio 1.2 (0.8-1.1) 1.3 (0.8-1.1) Hemoglobin A1c 6.8 % (4.8-5.6) Glucose (Fingerstick) 107 mg/dL (70-99) 114 mg/dL (70-99) Test 04/14/19 06:41 Glucose (Fingerstick) 97 mg/dL (70-99) Laboratory Tests Test 04/13/19 09:43 04/13/19 11:57 04/13/19 17:07 04/14/19 04:40 Hemoglobin 12.9 g/dL (13.0-17.5) 12.1 g/dL (13.0-17.5) Hematocrit 37.9 % (39.0-53.0) 35.9 % (39.0-53.0) Mean Corpuscular Hemoglobin Concent 34 g/dL (31-37) 34 g/dL (31-37) Prothrombin Time 15.1 SEC (11.7-14.0) 15.7 SEC (11.7-14.0) Prothromb Time International Ratio 1.2 (0.8-1.1) 1.3 (0.8-1.1) Hemoglobin A1c 6.8 % (4.8-5.6) Glucose (Fingerstick) 107 mg/dL (70-99) 114 mg/dL (70-99) Test 04/14/19 06:41 Glucose (Fingerstick) 97 mg/dL (70-99) Brief Hospital Course Mr. Molina is a 68 old male who presented to my outpatient orthopedic surgery clinic with complaints of severe and progressive pain that failed conservative therapies including injections. We had a discussion of the risks, benefits, alternatives to total knee arthroplasty and he elected to proceed. He tolerated surgery well cover well from anesthesia in the PACU. He was then taken to the joint Center for care and observation. He did receive PT, OT, DVT and antibiotic prophylaxis. He recovered well from surgery and remained hemodynamically stable and afebrile throughout the hospitalization. Pain was controlled on oral pain medicine at the time of discharge. Good progress was made with therapy throughout the hospitalization, and activities of daily living were accomplished by the patient. The incision was clean dry and intact and the operative extremity had normal motor and sensation. Discharge Information Condition at Discharge: Stable Follow Up: Weeks Disposition/Orders: D/C to Home Scheduled Amlodipine/Valsartan (Exforge 5-320 Mg Tablet) 1 Each Tablet, 1 EACH PO DAILY for BP CONTROL, (Reported) Entered as Reported by: MARC CHEN on 03/23/19 1604 Last Taken: Unknown Dose on 04/10/19 Last Action: Converted on 04/11/19736 by DEMETRI FELIPE MD Atorvastatin Calcium (Atorvastatin Calcium) 40 Mg Tablet, 40 MG PO DAILY, (Reported) Entered as Reported by: MARC CHEN on 06/22/13 1133 Last Taken: Unknown Dose on 04/11/19 0515 Last Action: Continued on 04/11/19736 by DEMETRI FELIPE MD Celecoxib (Celebrex) 200 Mg Capsule, 200 MG PO DAILY, (Reported) Entered as Reported by: MARC CHEN on 06/22/131132 Last Taken: Unknown Dose on 04/10/19 Last Action: Converted on 04/11/19736 by DEMETRI FELIPE MD Loperamide Hcl (Loperamide) 2 Mg Tablet, 2 MG PO BID for CONTROL DIARRHEA, (Reported) Entered as Reported by: MARC CHEN on 03/23/191603 Last Taken: Unknown Dose on 04/11/19514 Last Action: Converted on 04/11/19736 by DEMETRI FELIPE MD Loratadine (Loratadine) 10 Mg Tablet, 10 MG PO DAILY for CONTROL ALLERGIES, (Reported) Entered as Reported by: MARC CHEN on 03/23/191603 Last Taken: Unknown Dose on 04/10/19 Last Action: Converted on 04/11/19736 by DEMETRI FELIPE MD Metoprolol Tartrate (Metoprolol Tartrate) 100 Mg Tablet, 100 MG PO DAILY, (Reported) Entered as Reported by: MARC CHEN on 06/22/131132 Last Taken: Unknown Dose on 04/11/19514 Last Action: Converted on 04/11/19736 by DEMETRI FELIPE MD Multivitamin (Multi Vitamin Daily) 1 Each Tablet, 1 EACH PO DAILY, (Reported) Entered as Reported by: MARC CHEN on 06/22/131132 Last Taken: Unknown Dose on 04/04/19 Last Action: Converted on 04/11/19736 by DEMETRI FELIPE MD Omeprazole (Omeprazole) 20 Mg Tablet.dr, 20 MG PO QODAY, (Reported) Entered as Reported by: MARC CHEN on 06/22/131132 Last Taken: Unknown Dose on 04/11/19514 Last Action: Converted on 04/11/19736 by DEMETRI FELIPE MD Ropinirole Hcl (Requip) 1 Mg Tablet, 3 MG PO HS for CONTROL RESTLESS LEG, (Reported) Entered as Reported by: MARC CHEN on 06/22/131132 Last Taken: Unknown Dose on 04/10/19 Last Action: Continued on 04/11/19736 by DEMETRI FELIPE MD Scheduled PRN Naproxen Sodium (Aleve) 220 Mg Tablet, 220 MG PO PRN BID PRN for PAIN CONTROL, (Reported) Entered as Reported by: MARC GUSTAVO on 03/23/19 1604 Last Taken: Unknown Dose on 04/04/19 Last Action: HELD on 04/11/19 0737 by DEMETRI FELIPE MD Patient Instructions Patient Instructions He'll be discharged home. He has outpatient physical therapy set up. I'll see him back in 2 weeks, he has that appointment set up as well. He can weight-bear as tolerated. Coumadin for 1 month. Worrisome signs and symptoms that should prompt a phone call were discussed and his questions were answered. FLOYD FELIPE II, MD Apr 14, 2019 08:41
--- NOTE | 2019-04-14 09:00 | NUR ---
Riky is doing well. stephen in the recliner. states that he slept better. was not getting up every 1-1.5 to get up to void. blood sugars are well controlled with diet. pain is controlled with oral medication.
[2019-04-14] MEDS ORDERED: WARF7.5T45 PO (10:01)
--- NOTE | 2019-04-14 11:27 | NUR ---
Pharmacy Warfarin Dosing Note S: Pharmacy consulted to assist with anticoagulation therapy started 04/11/19 O: CARLOS SPRING is a 68 year old M with TKA LABS: Last INR: 1.3 Last HGB: 12.1 Last HCT: 35.9 Last PLT: Last dose of 5 mg given on 04/13/19 at 1640 Ongoing Drug Interactions: Celebrex A:INR of 1.3 is below desired range. Patient has received wafarin 7.5 mg x 1 dose (3/2) and 5 mg x 2 doses (3/3-4). Target range for this patient is: 1.6 - 2.5 P: Warfarin dose: 7.5 mg prior to discharge Bridge Therapy: None Next INR due Thursday, April 17 Outpatient pharmacy anticoagulation service will continue to follow. AWAIS TRUJILLO [facility], 04/14/19 112
[2019-04-14] MEDS ORDERED: WARFARIN 7.5 MG TABLET. PO ONE (13:00)
[2019-04-14 15:19] VITALS: BP 113/60
--- NOTE | 2019-04-14 15:42 | NUR ---
reviewed discharge instructions with Riky and . discussed dressing care, medications and follow up with Dr. Gallegos. already has an appt with Jose Armando Bower. script for pain med given. reviewed restrictions to activities of daily living such as dressing, bathing and driving. scripts for pain med and outpatient therapy given. dismissed to home with .
== END 2019-04-14 15:15 | disposition home or self-care (01) | DRG 470 ==
LOC: SURG 06:07 → 4 SOUTHEST 07:37 → OBSVTOIN 13:09
PROVIDERS: ADMIT Orthopaedic Surgery Sports Medicine; ATTEND Orthopaedic Surgery Sports Medicine
PROC: 8E0Y0CZ Robotic Assisted Procedure of Lower Extremity, Open Approach (ICD-10-PCS; 2019-04-11)
PROC: 0SRC0J9 Replacement of Right Knee Joint with Synthetic Substitute, Cemented, Open Approach (ICD-10-PCS; principal; 2019-04-11 07:30)
DX: M17.11 Unilateral primary osteoarthritis, right knee (principal); K50.90 Crohn's disease, unspecified, without complications; Z96.652 Presence of left artificial knee joint; D64.9 Anemia, unspecified; Z80.1 Family history of malignant neoplasm of trachea, bronchus and lung; Z82.49 Family history of ischemic heart disease and other diseases of the circulatory system; Z80.3 Family history of malignant neoplasm of breast; Z88.2 Allergy status to sulfonamides; Z79.01 Long term (current) use of anticoagulants; Z87.442 Personal history of urinary calculi
CPT/HCPCS: 36415; 73560; 82962; 83036; 85014; 85018; 85610; 85730; 86850; 86900; 86901; 88304; 88311; C1713; G0378; G0379; J0171; J0696; J1100; J1815; J1885; J2001; J2270; J2370; J2405; J2704; J2795; J3010; J3490; J7030; 97110; 97116; 97150; 97530; 97535; C1769; Q0162

== ENCOUNTER 2019-05-20 17:18 | Emergency (ER) | payer MEDICARE, BC ==
[~2019-05-20] VITALS: Ht 177.8 cm; Wt 97.7 kg
[~2019-05-20 17:18] MED LIST changes: -ACETAMINOPHEN 500 MG TABLET PO PRN; -GABAPENTIN 300 MG CAPSULE. PO PRN; -MELOXICAM 7.5 MG TABLET PO PRN; -MORPHINE SULFATE 5 MG, KETOROLAC 30MG VIAL 30 MG, ROPIVacaine 0.5% PF 60 ML, EPINEPHrin... INT ART ONE; -TRANEXAMIC ACID 1,000 MG in IV NS 50ML -- 1ST BAG INJ ONE; +WARF7.5T45 PO
[2019-05-20 17:30] VITALS: BP 147/65
--- NOTE | 2019-05-20 17:32 | PHYS DOC ---
Past Medical History Smoking Status: Never Smoker (JAMEL ARCHIBALD APRN) Attending Signature I have participated in the care of this patient and I have reviewed and agree with all pertinent clinical information above including history, exam, and recommendations. (HANSEL NELSON MD) General Adult EDM: Chief Complaint: KNEE INJURY HPI: HPI: Patient is a 68 year old male who presents the ED today to be evaluated for right knee injury. Patient reports being at physical therapy post knee replacement, he slipped and fell down 1 step. Patient denies any loss of consciousness, denies hitting his head on the ground. Reports knee replacement around April 11, 2019 (JAMEL ARCHIBALD APRN) Review of Systems: Review of Systems: Constitutional: Denies fever or chills. [] Musculoskeletal: Reports right knee injury Integument: Denies rash. [] Neurologic: Denies headache, focal weakness or sensory changes. [] Lymphatic: Denies swollen glands. [] Psychiatric: Denies depression or anxiety. [] (JAMEL ARCHIBALD APRN) Heart Score: Risk Factors: Risk Factors: DM, Current or recent (<one month) smoker, HTN, HLP, family history of CAD, obesity. Risk Scores: Score 0 - 3: 2.5% MACE over next 6 weeks - Discharge Home Score 4 - 6: 20.3% MACE over next 6 weeks - Admit for Clinical Observation Score 7 - 10: 72.7% MACE over next 6 weeks - Early Invasive Strategies (JAMEL ARCHIBALD APRN) Allergies: Allergies: Allergies Coded Allergies Type Severity Reaction Last Updated Verified Sulfa (Sulfonamide Antibiotics) Allergy Intermediate 04/11/19 Yes (JAMEL ARCHIABLD APRN) Physical Exam: PE: Constitutional: Well developed, well nourished, no acute distress, non-toxic appearance. [] Skin: Warm, dry, no erythema, no rash. [] Back: No tenderness, no CVA tenderness. [] Extremities: Right knee with no obvious deformity. Surgical incision noted on the right anterior knee, incision is well approximated, no signs of infection. Limited range of motion to the right knee. +2 right pedal pulse. Cap refill less than 2 seconds the right lower extremity. Neurologic: Alert and oriented X 3, normal motor function, normal sensory function, no focal deficits noted. [] Psychologic: Affect normal, judgement normal, mood normal. [] (JAMEL ARCHIBALD APRN) EKG: EKG: [] (JAMEL ARCHIBALD APRN) Radiology/Procedures: Radiology/Procedures: PROCEDURE: KNEE RIGHT 3V Study: CR KNEE RIGHT 3V Indication: Fall. Knee pain. Comparison: 04/11/2019 Findings: Status post total right knee arthroplasty. Femur and tibia ghost tracks are again noted. The hardware is intact. No periprosthetic fracture. Small foci of mineralization adjacent to the lateral tibial tray were present previously. Soft tissue prominence at the suprapatellar recess could represent a knee joint effusion or postoperative synovial thickening. Rounded increased density posterior to the distal femur is nonspecific but may represent a Watson's cyst. Prominence of the soft tissues along the medial aspect of the knee and distal thigh as well as along the anterior aspect of the distal thigh. Impression: 1. Status post total right knee arthroplasty without hardware complication or periprosthetic fracture. 2. Either a suprapatellar knee joint effusion or postoperative synovial thickening. 3. Nonspecific soft tissue prominence at the medial and anterior distal thigh/knee. Radiography findings which could represent a Watson's cyst. Electronically signed by: LAUREN WRIGHT MD (05/20/2019 5:46 PM) [id number] DICTATED and SIGNED BY: LAUREN WRIGHT MD DATE: 05/20/191745 (JAMEL ARCHIBALD APRN) Course & Med Decision Making: Course & Med Decision Making Pertinent Labs and Imaging studies reviewed. (See chart for details) This is a 68-year-old male patient presenting to the ED today with right knee injury. Patient fell down 1 step at physical therapy. Right knee x-rays interpreted by radiologist are negative for any acute findings. Noted for possible small joint effusion, Watson's cyst. Saul bandage applied to the right knee and the knee immobilizer by the ED RN, neurovascular exam is intact. Ice elevation encouraged. Follow-up with orthopedic doctor next week as scheduled (JAMEL ARCHIBALD APRN) Dragon Disclaimer: Dragon Disclaimer: This electronic medical record was generated, in whole or in part, using a voice recognition dictation system. (JAMEL ARCHIBALD APRN) Departure Departure Impression: Primary Impression: Fall Qualified Codes: W19.XXXA - Unspecified fall, initial encounter Additional Impression: Right knee pain Qualified Codes: M25.561 - Pain in right knee Disposition: 01 HOME, SELF-CARE Condition: STABLE Referrals: TAI ZAMBRANO MD (PCP) follow up next week FLOYD FELIPE II, MD Patient Instructions: Knee Pain, [id number] Additional Instructions: You were seen for right knee injury, your right knee x-rays are negative for any acute findings. Follow-up with orthopedic doctor next week. Try to ice and elevate the extremity. JAMEL ARCHIBALD [employer]IC[employer] May 20, 2019 17:32 HANSEL NELSON MD May 20, 2019 18:35
--- NOTE | 2019-05-20 17:49 | RAD ---
Study: CR KNEE RIGHT 3V Indication: Fall. Knee pain. Comparison: 04/11/2019 Findings: Status post total right knee arthroplasty. Femur and tibia ghost tracks are again noted. The hardware is intact. No periprosthetic fracture. Small foci of mineralization adjacent to the lateral tibial tray were present previously. Soft tissue prominence at the suprapatellar recess could represent a knee joint effusion or postoperative synovial thickening. Rounded increased density posterior to the distal femur is nonspecific but may represent a Watson's cyst. Prominence of the soft tissues along the medial aspect of the knee and distal thigh as well as along the anterior aspect of the distal thigh. Impression: 1. Status post total right knee arthroplasty without hardware complication or periprosthetic fracture. 2. Either a suprapatellar knee joint effusion or postoperative synovial thickening. 3. Nonspecific soft tissue prominence at the medial and anterior distal thigh/knee. Radiography findings which could represent a Watson's cyst. Electronically signed by: LAUREN WRIGHT MD (05/20/2019 5:46 PM) [id number]
== END 2019-05-20 18:36 | disposition home or self-care (01) ==
LOC: ER 17:18
DX: M25.561 Pain in right knee (principal); G89.11 Acute pain due to trauma; Z88.2 Allergy status to sulfonamides; W10.8XXA Fall (on) (from) other stairs and steps, initial encounter; Y93.89 Activity, other specified; Y92.89 Other specified places as the place of occurrence of the external cause; Y99.8 Other external cause status
CPT/HCPCS: 29505; 73562; 99283

== ENCOUNTER 2019-05-26 11:30 | Observation (INO) | payer MEDICARE, BC ==
[~2019-05-26] VITALS: Ht 177.8 cm; Wt 102.4 kg
[2019-05-26] MEDS ORDERED: TAMS0.4C97 PO (12:00)
[2019-05-26] MEDS ORDERED: CETI10TA24 PO (12:00)
[2019-05-26] MEDS ORDERED: ACET500T68 PO (12:00)
[2019-05-30] VITALS (10 sets, daily range): BP systolic 123–146; BP diastolic 50–79
[2019-05-30] MEDS ORDERED: MORPHINE SULFATE 5 MG, KETOROLAC 30MG VIAL 30 MG, ROPIVacaine 0.5% PF 60 ML, EPINEPHrin... INT ART ONE ×5 (06:00)
[2019-05-30] MEDS ORDERED: MORPHINE SULFATE 2 MG/ML VIAL. IV PRN (07:00)
[2019-05-30] MEDS ORDERED: fentaNYL PF VIAL 100 MCG/2 ML VIAL IV PRN (07:00)
[2019-05-30] MEDS ORDERED: IV RINGERS,LACTATED 1000ML 1,000 ML IV SCH (07:00)
[2019-05-30] MEDS ORDERED: LIDOCAINE 1% PF 2 ML VIAL. ID PRN (07:00)
[2019-05-30] MEDS ORDERED: HYDROmorphone 2 MG/ML VIAL IV PRN (07:00)
[2019-05-30] MEDS ORDERED: PROCHLORPERAZINE 10 MG/2 ML VIAL. IV PRN (07:00)
[2019-05-30] MEDS ORDERED: ONDANSETRON PF 4 MG/2 ML VIAL. IV PRN (07:00)
[2019-05-30] MEDS ORDERED: ROCURONIUM 50 MG/5 ML VIAL. ONE (09:41)
[2019-05-30] MEDS ORDERED: GLYCOPYRROLATE 1 MG/5 ML VIAL. ONE (09:41)
[2019-05-30] MEDS ORDERED: fentaNYL PF VIAL 100 MCG/2 ML VIAL ONE (09:41)
[2019-05-30] MEDS ORDERED: PROPOFOL 20 ML IV ONE (09:41)
[2019-05-30] MEDS ORDERED: NEOSTIGMINE METHYLSULFATE 5 MG/5 ML SYRINGE. ONE (09:41)
[2019-05-30] MEDS ORDERED: SEVOFLURANE > 120 MINUTES. IH ONE (09:41)
[2019-05-30] MEDS ORDERED: ONDANSETRON PF 4 MG/2 ML VIAL. ONE (09:42)
[2019-05-30] MEDS ORDERED: DEXAMETHASONE SOD PHOS 4 MG/ML VIAL ONE (09:42)
[2019-05-30] MEDS ORDERED: LIDOCAINE 2% PF 5 ML VIAL. ONE (09:42)
[2019-05-30] MEDS ORDERED: 0.9 % SODIUM CHLORIDE 10 ML DISP.SYRIN. IV PRN (10:45)
[2019-05-30] MEDS ORDERED: diphenhydrAMINE 50 MG/ML VIAL IVP PRN (10:45)
[2019-05-30] MEDS ORDERED: CALCIUM CARBONATE 500 MG TAB.CHEW PO PRN (10:45)
[2019-05-30] MEDS ORDERED: METOCLOPRAMIDE HCL 10 MG/2 ML VIAL. IVP PRN (10:45)
[2019-05-30] MEDS ORDERED: DEXTROSE 50% 25 GM / 50ML DISP.SYRIN. IV PRN (10:45)
[2019-05-30] MEDS ORDERED: PROCHLORPERAZINE 5 MG TABLET. PO PRN (10:45)
[2019-05-30] MEDS ORDERED: MORPHINE SULFATE 2 MG/ML VIAL. IVP PRN (10:45)
[2019-05-30] MEDS ORDERED: fentaNYL PF VIAL 100 MCG/2 ML VIAL IVP PRN (10:45)
[2019-05-30] MEDS ORDERED: NON FORMULARY ITEM (Naproxen Sodium (Aleve) 220 MG) PO PRN (10:45)
[2019-05-30] MEDS ORDERED: ZOLPIDEM 5 MG TABLET. PO PRN (10:45)
[2019-05-30] MEDS ORDERED: ePHEDrine PF IN SALINE 50 MG/10 ML SYRINGE. IV ONE (10:46)
[2019-05-30] MEDS ORDERED: PHENYLEPHRINE in 0.9% NACL PF 1 MG/10 ML SYRINGE. IV ONE (10:46)
[2019-05-30] MEDS ORDERED: VASOPRESSIN 20 UNIT/ML VIAL. ONE (10:55)
--- NOTE | 2019-05-30 11:49 | PDOC4 ---
Operative Note Operative Note Date of procedure: 05/30/2019 Surgeon: Topher Felipe Desktop Operator: Travis Bernal and Garo Ramirez Preoperative diagnosis: Right total knee arthrotomy dehiscence Postoperative diagnosis: Same Procedure performed: #1 arthrotomy repair of right total knee arthroplasty left 2. Irrigation and debridement right total knee Anesthesia: General Findings: Patient had dehisced approximately 8 cm of the superior portion of his arthrotomy, he then tore through his medial retinaculum, the distal portion of the arthrotomy was intact Complications: None Blood loss: 25 mL Tourniquet time: Less than 60 minutes Specimens: Aspiration and tissue was sent for culture Reason for procedure: Patient is a very pleasant gentleman who underwent total knee arthroplasty with myself 6 weeks ago and had been recovering very well. After a therapy session, he was descending several flights of stairs and lost his footing, he fell and hyperflexed his knee and has had increased pain with swelling and difficulty straightening his knee since then. Please see my outpatient notes for full details. I had discussion of the risks, benefits, alternatives and he wished to proceed. Description of procedure: Patient was greeted in the preoperative area by myself or the correct extremity was verified and marked. He was taken to the operative suite and once in the operating room, he was administered IV antibiotics and transferred gently supine to the operating table and secured to the bed with all pressure points padded. He then underwent a successful induction of a general anesthetic. We then proceeded to apply a nonsterile tourniquet to his right upper thigh and taped it in place. Right lower extremity was then prepped and draped in her usual sterile fashion including an Ioban sandwich and we conducted our standard preoperative timeout. After this, the extremity was exsanguinated with an Esmarch and tourniquet insufflated to 250 mmHg. I then incised skin through his prior skin incision centered over the palpable defect after I performed an aspiration through a superolateral portal. At this point, I noted a large amount of hematoma in the subcutaneous tissue. I was able to digitally palpate for the dehiscence. I then irrigated this out with pulsatile lavage for improved visualization. After this, I debrided some of the hematoma and clot. I then inspected the remainder of his arthrotomy dehiscence with above-noted findings. After this, I took my tissue samples and sent them off. I then debrided the edges of the rupture to freshen them up. I think continued my irrigation throughout the operative field in total knee. After this, I began to close the arthrotomy with #1 and #2 Ethibond in a simple interrupted fashion. I did place a 1/8 inch Hemovac exiting superolaterally prior to arthrotomy closure. After completing my closure, I tested in flexion and noted no extravasation of fluid. Inverted interrupted 2-0 Vicryl was then used for subcutaneous tissue and 4-0 Monocryl in a running subcuticular fashion was then used for skin. Prior to beginning wound closure, all counts correct x2. No complications. He tolerated surgery well. At the conclusion, he was awakened from anesthesia after a sterile incisional wound VAC was applied. He was transferred on the spine to the hospital bed and taken to PACU in a stable and extubated condition. [facility] as well as to begin some gentle rehab. He will be maintained on IV antibiotics. We will monitor his clinical course. TOPHER FELIPE II, MD May 30, 2019 11:49
[2019-05-30] MEDS: ONDANSETRON PF 4 MG/2 ML VIAL. IVP SCH ×2 (12:00→17:55)
[2019-05-30] MEDS ORDERED: ONDANSETRON ODT 4 MG TAB.RAPDIS. PO SCH (12:00)
[2019-05-30] MEDS: fentaNYL PF VIAL 100 MCG/2 ML VIAL IV PRN ×2 (12:24→12:56)
[2019-05-30] MEDS ORDERED: LOPERAMIDE 2 MG CAPSULE PO PRN (13:30)
[2019-05-30] MEDS: IV NORMAL SALINE 1000ML BAG 1,000 ML IV SCH (14:37)
[2019-05-30] MEDS: oxyCODONE IR 5 MG TABLET PO PRN ×2 (14:46→18:31)
[2019-05-30] MEDS ORDERED: WARFARIN 7.5 MG TABLET. PO ONE (16:00)
[2019-05-30] MEDS: FERROUS SULFATE 325 MG TABLET. PO SCH (17:17)
[2019-05-30] MEDS: TAMSULOSIN 0.4 MG CAP.ER.24H. PO SCH (21:05)
[2019-05-30] MEDS: rOPINIRole 1 MG TABLET. PO SCH (21:05)
[2019-05-30] MEDS: ATORVASTATIN CALCIUM 40 MG TABLET. PO SCH (21:05)
[2019-05-31] MEDS: ONDANSETRON PF 4 MG/2 ML VIAL. IVP SCH ×2 (00:16→04:54)
[2019-05-31] MEDS: oxyCODONE IR 5 MG TABLET PO PRN ×6 (00:32→20:56)
[2019-05-31 03:45] VITALS: BP 115/72
[2019-05-31 04:32] LABS: PROTHROMBIN TIME PATIENT 13.9 SEC (11.7-14.0)
[2019-05-31] MEDS ORDERED: MAGNESIUM HYDROXIDE 2,400 MG/30 ML ORAL.SUSP. PO PRN (06:00)
[2019-05-31 07:15] VITALS: BP 153/71
[2019-05-31] MEDS ORDERED: PANTOPRAZOLE 40 MG TABLET.DR. PO SCH (07:30)
--- NOTE | 2019-05-31 08:35 | PDOC ---
ORTHO PROGRESS NOTES Subjective He tells me that his pain is tolerable. He has been able to get up and move around. Denies any trouble breathing, chest pain, abdominal complaints Vitals Vital Signs Date Time Temp Pulse Resp B/P (MAP) Pulse Ox O2 Delivery O2 Flow Rate FiO2 05/31/19 07:15 98.8 86 18 153/71 (98) 96 Room Air 98.8 05/30/19 11:57 10 Labs Laboratory Tests Test 05/31/19 04:10 Prothrombin Time 13.9 SEC (11.7-14.0) Prothromb Time International Ratio 1.1 (0.8-1.1) Laboratory Tests Test 05/31/19 04:10 Prothrombin Time 13.9 SEC (11.7-14.0) Prothromb Time International Ratio 1.1 (0.8-1.1) Notes He is awake and alert and sitting in bed. Dressing is intact, small amount of drainage. Normal motor and sensation are present in his right lower extremity Assessment and Plan We will plan on discharging him home today. We will get him set up for physical therapy. Worrisome signs and symptoms that should prompt a phone call were discussed. I will see him back in 2 weeks, sooner should a problem arise FLOYD FELIPE II, MD May 31, 2019 08:35
[2019-05-31] MEDS: ACETAMINOPHEN 500 MG TABLET PO SCH ×3 (09:00→21:01)
[2019-05-31] MEDS: SENNOSIDES/DOCUSATE 8.6/50MG TABLET. PO SCH (09:00)
[2019-05-31] MEDS: LOSARTAN POTASSIUM 50 MG TABLET. PO SCH (09:01)
[2019-05-31] MEDS: CETIRIZINE HCL 10 MG TABLET. PO SCH (09:01)
[2019-05-31] MEDS: FERROUS SULFATE 325 MG TABLET. PO SCH ×2 (09:01→16:55)
[2019-05-31] MEDS: METOPROLOL SUCC 24HR ER 100 MG TAB.ER.24H. PO SCH (09:01)
--- NOTE | 2019-05-31 09:01 | DISCH ---
DISCHARGE INSTRUCTIONS Condition on Discharge Condition on Discharge: Stable Activity After Discharge Activity Instructions for Disc: Other, see below Other activity instructions: Limit knee flexion to 90 degrees Bathing Instructions: No Tub Bath until see Lifting Instructions after Dis: No heavy lifting, No pulling or pushing, Do not lift >10 pounds Exercise Instruction after Dis: Walk 10 min, 3 x per day, Walk 15 min, 3 x per day, Walk 30 min, 3 x per week Weight Bearing Status after Di: As tolerated Diet after Discharge Diet after Discharge: Regular Wound Incision Care Wound/Incision Care: Ice to area for comfort, Keep wound/cast CDI, Do not change dressing Contacting the after DC Call your doctor for: Concerns you may have Follow-Up Follow up with: Rosy in 2 weeks Follow Up With: PT Warfarin Follow-Up Warfarin Follow UP: per Pharmacy FLOYD FELIPE II, MD May 31, 2019 09:01
[2019-05-31] MEDS: amLODIPine BESYLATE 5 MG TABLET PO SCH (09:02)
[2019-05-31] MEDS: MULTIVITAMIN with MINERAL TABLET. PO SCH (09:02)
--- NOTE | 2019-05-31 09:21 | NUR ---
SW following. Discussed with RN, pt from home, RN advised no SW needs and anticipates pt will discharge home today with self care. SW will continue to follow.
--- NOTE | 2019-05-31 10:17 | PDOC3 ---
Discharge Summary Visit Information Date of Admission: May 30, 2019 Date of Discharge: May 31, 2019 Admitting Diagnosis: Right total knee arthrotomy dehiscence Brief Hospital Course Allergies Allergies Coded Allergies Type Severity Reaction Last Updated Verified Sulfa (Sulfonamide Antibiotics) Allergy Intermediate 05/30/19 Yes Vital Signs Vital Signs Date Time Temp Pulse Resp B/P (MAP) Pulse Ox O2 Delivery O2 Flow Rate FiO2 05/31/19 10:10 16 Room Air 05/31/19 09:02 86 153/71 05/31/19 07:15 98.8 96 98.8 05/30/19 11:57 10 Lab Results Laboratory Tests Test 05/31/19 04:10 Prothrombin Time 13.9 SEC (11.7-14.0) Prothromb Time International Ratio 1.1 (0.8-1.1) Laboratory Tests Test 05/31/19 04:10 Prothrombin Time 13.9 SEC (11.7-14.0) Prothromb Time International Ratio 1.1 (0.8-1.1) Brief Hospital Course Mr. Molina is a 68 old male who presented to my outpatient clinic in follow-up of his right total knee arthroplasty after a fall and loss of motion at his knee. Please see my outpatient note for further details. He underwent arthrotomy repair and tolerated this well. He recovered well from anesthesia in the PACU and was taken to the [facility] floor for care and observation. He was able to maintain his ADLs fairly well. His pain was controlled on oral pain medicine. His dressing was intact, only a small amount of drainage was present. Normal bowel and bladder function were present. He was hemodynamically stable and afebrile throughout his hospital stay. Discharge Information Condition at Discharge: Stable Follow Up: Weeks Disposition/Orders: D/C to Home Scheduled Amlodipine/Valsartan (Exforge 5-320 Mg Tablet) 1 Each Tablet, 1 EACH PO HS for BP CONTROL, (Reported) Entered as Reported by: MARC CHEN on 03/23/19 1604 Last Taken: Unknown Dose on 05/29/19 2100 Last Action: Converted on 05/30/19 1043 by DEMETRI FELIPE MD Atorvastatin Calcium (Atorvastatin Calcium) 40 Mg Tablet, 40 MG PO HS for cholesterol, (Reported) Entered as Reported by: MARC CHEN on 06/22/13 1133 Last Taken: Unknown Dose on 05/29/19 2100 Last Action: Continued on 05/30/191042 by DEMETRI FELIPE MD Cetirizine Hcl (Zyrtec) 10 Mg Tablet, 10 MG PO DAILY for control allergies, (Reported) Entered as Reported by: MARC CHEN on 05/26/19 1200 Last Taken: Unknown Dose on 05/29/19 0800 Last Action: Continued on 05/30/19 104 by DEMETRI FELIPE MD Loperamide Hcl (Loperamide) 2 Mg Tablet, 2 MG PO BID for CONTROL DIARRHEA, (Reported) Entered as Reported by: MARC CHEN on 03/23/19 1604 Last Taken: Unknown Dose on 05/30/19 0640 Last Action: Converted on 05/30/191042 by DEMETRI FELIPE MD Metoprolol Tartrate (Metoprolol Tartrate) 100 Mg Tablet, 100 MG PO DAILY for heart, (Reported) Entered as Reported by: MARC CHEN on 06/22/13 113 Last Taken: Unknown Dose on 05/30/19 0640 Last Action: Converted on 05/30/191042 by DEMETRI FELIPE MD Multivitamin (Multi Vitamin Daily) 1 Each Tablet, 1 EACH PO DAILY for supplement, (Reported) Entered as Reported by: MARC CHEN on 06/22/13 113 Last Action: HELD on 05/30/191042 by DEMETRI FELIPE MD Omeprazole (Omeprazole) 20 Mg Tablet.dr, 20 MG PO QODAY for stomach, (Reported) Entered as Reported by: MARC CHEN on 06/22/13 113 Last Taken: Unknown Dose on 05/30/19 0640 Last Action: Converted on 05/30/191042 by DEMETRI FELIPE MD Ropinirole Hcl (Requip) 1 Mg Tablet, 3 MG PO HS for CONTROL RESTLESS LEG, (Reported) Entered as Reported by: MARC CHEN on 06/22/13 113 Last Taken: Unknown Dose on 05/29/19 2100 Last Action: Continued on 05/30/191042 by DEMETRI FELIPE MD Tamsulosin Hcl (Flomax) 0.4 Mg Cap.er.24h, 0.4 MG PO HS for prostate issues, (Reported) Entered as Reported by: MARC CHEN on 05/26/19 1200 Last Taken: Unknown Dose on 05/29/19 2100 Last Action: Continued on 05/30/19 104 by DEMETRI FELIPE MD Scheduled PRN Acetaminophen (Acetaminophen) 500 Mg Tablet, 1,000 MG PO PRN BID PRN for PAIN, (Reported) Entered as Reported by: MARC CHEN on 05/26/19 1200 Last Action: HELD on 05/30/191042 by DEMETRI FELIPE MD Naproxen Sodium (Aleve) 220 Mg Tablet, 220 MG PO PRN BID PRN for PAIN CONTROL, (Reported) Entered as Reported by: MARC CHEN on 03/23/19 1604 Last Action: Converted on 05/30/191042 by DEMETRI FELIPE MD Discontinued Medications Celecoxib (Celebrex) 200 Mg Capsule, 200 MG PO DAILY for antiflammatory, (Reported) Entered as Reported by: MARC CHEN on 06/22/13 1133 Last Action: Discontinued on 05/26/191199 by MARC CHEN Loratadine (Loratadine) 10 Mg Tablet, 10 MG PO DAILY for CONTROL ALLERGIES, (Reported) Entered as Reported by: MARC CHEN on 03/23/19 1604 Last Action: Discontinued on 05/26/191199 by MARC CHEN Warfarin Sodium (Warfarin Sodium) 7.5 Mg Tablet, 7.5 MG PO DAILYWSUP PRN for blood thinner for 30 Days, #30 Ref 0 (Reported) Entered as Reported by: ANGELINA VARELA on 04/14/19 1001 Last Action: Discontinued on 05/26/191199 by MARC CHEN Patient Instructions Patient Instructions He will be discharged home. Weight-bear as tolerated. Coumadin for a month. We will get him started in a new physical therapy office per his request. Worrisome signs and symptoms that should prompt a phone call were discussed and his questions were answered. FLOYD FELIPE II, MD May 31, 2019 10:17
[2019-05-31] MEDS: IV NORMAL SALINE 1000ML BAG 1,000 ML IV SCH (10:38)
[2019-05-31 11:09] VITALS: BP 137/62
[2019-05-31] MEDS ORDERED: ONDANSETRON PF 4 MG/2 ML VIAL. IVP PRN (12:00)
[2019-05-31] MEDS ORDERED: ONDANSETRON ODT 4 MG TAB.RAPDIS. PO PRN (12:00)
[2019-05-31] MEDS ORDERED: WARFARIN 3 MG TABLET. PO ONE (13:00)
[2019-05-31 15:12] VITALS: BP 160/64
--- NOTE | 2019-05-31 15:51 | NUR ---
Patient had bladder scan after 6hrs w/o voiding. Showed 495. Chika ZHU strait cath patient per orders and got 600ml out. Paged oncall Dr. Dow to see if patient needs to stay one more night since discharge orders were already placed. Addendum: 05/31/19 at 1648 by ISELA MAR RN RN Dr. Gallegos returned call and recommends patient stay one more night for observation d/t unable to void. Patient agrees and will stay one more night.
[2019-05-31] MEDS ORDERED: BISACODYL 10 MG SUPP.RECT. PR PRN (16:00)
[2019-05-31] MEDS ORDERED: WARFARIN 5 MG TABLET. PO ONE (16:00)
[2019-05-31 19:58] VITALS: BP 142/71
[2019-05-31] MEDS: ATORVASTATIN CALCIUM 40 MG TABLET. PO SCH (20:55)
[2019-05-31] MEDS: TAMSULOSIN 0.4 MG CAP.ER.24H. PO SCH (20:55)
[2019-05-31] MEDS: rOPINIRole 1 MG TABLET. PO SCH (20:56)
[2019-05-31 23:34] VITALS: BP 158/78
[2019-06-01] MEDS: oxyCODONE IR 5 MG TABLET PO PRN ×2 (01:24→06:45)
[2019-06-01 03:30] VITALS: BP 167/88
[2019-06-01 04:58] LABS: HEMATOCRIT 34.9 % (39.0-53.0); HEMOGLOBIN 11.5 g/dL (13.0-17.5)
[2019-06-01 05:21] LABS: PROTHROMBIN TIME PATIENT 14.6 SEC (11.7-14.0)
[2019-06-01] MEDS: ACETAMINOPHEN 500 MG TABLET PO SCH ×2 (06:45→09:22)
[2019-06-01 07:00] VITALS: BP 155/79
--- NOTE | 2019-06-01 07:52 | PDOC ---
ORTHO PROGRESS NOTES Subjective The patient states that these mildly painful but tolerable. Post-op Day: 2 Procedure Right knee repair of quad tendon rupture Vitals Vital Signs Date Time Temp Pulse Resp B/P (MAP) Pulse Ox O2 Delivery O2 Flow Rate FiO2 06/01/19 06:45 22 Room Air 06/01/19 03:30 97.9 74 167/88 (114) 94 97.9 Labs Laboratory Tests Test 05/31/19 04:10 06/01/19 03:25 06/01/19 03:35 Prothrombin Time 13.9 SEC (11.7-14.0) 14.6 SEC (11.7-14.0) Prothromb Time International Ratio 1.1 (0.8-1.1) 1.2 (0.8-1.1) Hemoglobin 11.5 g/dL (13.0-17.5) Hematocrit 34.9 % (39.0-53.0) Mean Corpuscular Hemoglobin Concent 33 g/dL (31-37) Laboratory Tests Test 06/01/19 03:25 06/01/19 03:35 Hemoglobin 11.5 g/dL (13.0-17.5) Hematocrit 34.9 % (39.0-53.0) Mean Corpuscular Hemoglobin Concent 33 g/dL (31-37) Prothrombin Time 14.6 SEC (11.7-14.0) Prothromb Time International Ratio 1.2 (0.8-1.1) Notes Awake and alert Assessment and Plan Patient has no fever or complain of aches or chills today. Status post right knee surgery for repair of ruptured quad tendon. Motor and sensation intact distally. Dressing is dry and intact Patient will be discharged today. Follow-up in clinic in 2 weeks SAMANTHA CATES APRN Jun 01, 2019 07:51
[2019-06-01] MEDS: FERROUS SULFATE 325 MG TABLET. PO SCH (08:00)
[2019-06-01] MEDS: LOSARTAN POTASSIUM 50 MG TABLET. PO SCH (09:22)
[2019-06-01] MEDS: MULTIVITAMIN with MINERAL TABLET. PO SCH (09:22)
[2019-06-01] MEDS: amLODIPine BESYLATE 5 MG TABLET PO SCH (09:23)
[2019-06-01] MEDS: METOPROLOL SUCC 24HR ER 100 MG TAB.ER.24H. PO SCH (09:23)
[2019-06-01] MEDS: CETIRIZINE HCL 10 MG TABLET. PO SCH (09:23)
[2019-06-01] MEDS: SENNOSIDES/DOCUSATE 8.6/50MG TABLET. PO SCH (09:23)
--- NOTE | 2019-06-01 09:51 | NUR ---
SW following. Discussed with RN, pt able to discharge home today with self care.
[2019-06-01] MEDS: IV NORMAL SALINE 1000ML BAG 1,000 ML IV SCH (10:38)
--- NOTE | 2019-06-01 10:49 | NUR ---
Pharmacy Warfarin Dosing Note S:Pharmacy consulted to assist with anticoagulation therapy started 05/30/19 with target INR: 1.6 - 2.5 O:CARLOS SPRING is a 68 year old M with TKA LABS: Last INR: 1.2 Last HGB: 11.5 Last HCT: 34.9 Last PLT: -- Last dose of 6 mg given on 05/31/19 at 1252. A:INR of 1.2 is below desired range. Target range for this patient is: 1.6 - 2.5 P: Warfarin dose: 6 mg Prior to Discharge Pharmacy anticoagulation service will continue to follow. ANNEMARIE MUELLER [facility], 06/01/19 [id number]
[2019-06-01 10:56] VITALS: BP 149/74
--- NOTE | 2019-06-01 11:30 | NUR ---
Discharge instructions reviewed with patient, verbalized understanding. Patient will be escorted out via wheelchair.
[2019-06-01] MEDS ORDERED: WARFARIN 3 MG TABLET. PO ONE (14:00)
== END 2019-06-01 11:54 | disposition home or self-care (01) ==
LOC: OPSVCIP 05-30 09:21 → INTOOBSV 05-30 09:21 → 4 NORTH 05-30 12:59
PROVIDERS: ADMIT Orthopaedic Surgery Sports Medicine; ATTEND Orthopaedic Surgery Sports Medicine
DX: T81.33XA Disruption of traumatic injury wound repair, initial encounter (principal)
CPT/HCPCS: 27310; 36415; 85014; 85018; 85610; 87071; 87075; 87102; 87116; 96365; 96366; 96375; 96376; 97116; 97161; 97166; 97530; 97535; A7015; C1713; G0378; G0379; J0171; J0696; J1100; J1885; J2270; J2370; J2405; J2704; J2710; J2795; J3010; J3490; J7030; J7120; C1769

== ENCOUNTER → 2019-07-18 | Outpatient (CLI) | payer MEDICARE, BC ==
[2019-07-11 12:00] VITALS: BP 165/77
[~2019-07-18] MED LIST changes: +ACET500T68 PO; +BUPIVACAINE MPF 0.5% 30 ML VIAL. INJ ONE; +CETI10TA24 PO; +TAMS0.4C97 PO; +methylPREDNISolone ACETATE 80 MG/ML VIAL. IM ONE
--- NOTE | 2019-07-18 16:47 | RAD ---
EXAM: Ultrasound guided left bicipital tendon sheath injection. HISTORY: 69-year-old man status post left rotator cuff surgical repair referred for bicipital groove injection on ultrasound guidance.. TECHNIQUE: The risks and benefits of the procedure were discussed with the patient and written and verbal consent were obtained. A time out procedure was performed. Ultrasound imaging of the left shoulder was performed. The overlying skin was sterilely prepped and infiltrated with 1% lidocaine for local anesthesia. A 22-gauge spinal needle was then advanced into the bicipital groove under ultrasound guidance. Thereafter, a cocktail containing 80 mg of Depo-Medrol, 1 mL of 0.5 percent bupivacaine, and 1 mL of 1 percent lidocaine was administered without difficulty.. Instrumentation was withdrawn and a sterile dressing placed. There were no immediate complications. IMPRESSION: Uncomplicated ultrasound guided left bicipital groove local anesthetic injection as described. Electronically signed by: Jacquie Kaur MD (07/18/2019 4:44 PM) [id number]
== END ==
LOC: US 12:40
PROVIDERS: ATTEND Orthopaedic Surgery Sports Medicine
DX: M75.112 Incomplete rotator cuff tear or rupture of left shoulder, not specified as traumatic (principal)
CPT/HCPCS: 20550; 20611; 76942; 77002

== ENCOUNTER → 2020-03-12 | Outpatient (CLI) | payer MEDICARE, BC ==
[2019-07-11 12:00] VITALS: BP 165/77
[~2020-03-12] MED LIST changes: -BUPIVACAINE MPF 0.5% 30 ML VIAL. INJ ONE; +CETI10TA16 PO; -CETI10TA24 PO; +CETI10TA74 PO; -methylPREDNISolone ACETATE 80 MG/ML VIAL. IM ONE
[2020-03-12 14:38] LABS: BASO # 0.1 x10^3/uL (0.0-0.2); BASO % 1 % (0-3); EOS # 0.3 x10^3/uL (0.0-0.7); EOS % 5 % (0-3); HEMATOCRIT 40.8 % (39.0-53.0); HEMOGLOBIN 13.8 g/dL (13.0-17.5); LYMPH # 1.9 x10^3/uL (1.0-4.8); LYMPH % 31 % (24-48); MEAN CORPUSCULAR HEMOGLOBIN 29 pg (25-35); MEAN CORPUSCULAR HGB CONC 34 g/dL (31-37); MEAN CORPUSCULAR VOLUME 87 fL (79-100); MONO # 0.6 x10^3/uL (0.0-1.1); MONO % 9 % (0-9); NEUT # 3.4 x10^3/uL (1.8-7.7); NEUT % 55 % (31-73); PLATELET COUNT 203 x10^3/uL (140-400); RED BLOOD COUNT 4.71 x10^6/uL (4.30-5.70); RED CELL DISTRIBUTION WIDTH 13.4 % (11.5-14.5); WHITE BLOOD COUNT 6.2 x10^3/uL (4.0-11.0)
[2020-03-12 15:12] LABS: PROTHROMBIN TIME PATIENT 13.1 SEC (11.7-14.0)
[2020-03-12 19:56] LABS: CALCIUM 9.2 mg/dL (8.5-10.1); CREATININE 1.1 mg/dL (0.7-1.3); GFR 66.2; POTASSIUM 4.4 mmol/L (3.5-5.1)
[2020-03-13 00:09] LABS: HEMOGLOBIN A1C 6.9 % (4.8-5.6)
== END ==
LOC: SURGPAT 13:30
PROVIDERS: ATTEND Orthopaedic Surgery
DX: Z01.818 Encounter for other preprocedural examination (principal); M19.012 Primary osteoarthritis, left shoulder; Z79.899 Other long term (current) drug therapy; Z86.2 Personal history of diseases of the blood and blood-forming organs and certain disorders involving the immune mechanism
CPT/HCPCS: 36415; 80048; 82040; 82306; 83036; 85025; 85610; 85730; 86140; 87641

== ENCOUNTER → 2020-03-23 | Outpatient (CLI) | payer MEDICARE, BC ==
[2019-07-11 12:00] VITALS: BP 165/77
[~2020-03-23] MED LIST changes: +OXYC1TAB19 PO
== END ==
LOC: LAB 13:10
PROVIDERS: ATTEND Orthopaedic Surgery
DX: Z01.812 Encounter for preprocedural laboratory examination (principal); M19.012 Primary osteoarthritis, left shoulder; Z20.822 Contact with and (suspected) exposure to COVID-19
CPT/HCPCS: U0003

== ENCOUNTER → 2021-04-09 | Outpatient (CLI) | payer MEDICARE, BC ==
[2020-03-29 13:42] VITALS: BP 124/67
[~2021-04-09] MED LIST changes: +CYCL10TA19 PO; -CYCL10TA2 PO
--- NOTE | 2021-04-09 11:25 | EKG ---
[facility] [address] [place] [address] Test Date: 2021-04-09 Test Time: 11:10:05 Pat Name: CARLOS SPRING Department: Room: Gender: M Drywall Mechanic: ALLI : 1950 Requested By: FLOYD FELIPE Order Number: [id number] Reading MD: Abdon Sahni MD Measurements Intervals [place]ine Rate: 58 P: 151 IL: 176 QRS: -172 QRSD: 100 T: 178 QT: 434 QTc: 425 Interpretive Statements SINUS RHYTHM LIMB LEAD MISPLACEMENT Electronically Signed On 04-11-2021 9:06:49 HEAD OF TRAINING AND DEVELOPMENT by Abdon Sahni MD
[2021-04-09 11:28] LABS: BASO % 1 % (0-3); EOS # 0.3 x10^3/uL (0.0-0.7); EOS % 5 % (0-3); HEMATOCRIT 39.7 % (39.0-53.0); HEMOGLOBIN 13.5 g/dL (13.0-17.5); LYMPH # 2.1 x10^3/uL (1.0-4.8); LYMPH % 38 % (24-48); MEAN CORPUSCULAR HEMOGLOBIN 29 pg (25-35); MEAN CORPUSCULAR HGB CONC 34 g/dL (31-37); MEAN CORPUSCULAR VOLUME 86 fL (79-100); MONO # 0.6 x10^3/uL (0.0-1.1); MONO % 10 % (0-9); NEUT # 2.6 x10^3/uL (1.8-7.7); NEUT % 46 % (31-73); PLATELET COUNT 214 x10^3/uL (140-400); RED BLOOD COUNT 4.65 x10^6/uL (4.30-5.70); RED CELL DISTRIBUTION WIDTH 13.6 % (11.5-14.5); WHITE BLOOD COUNT 5.5 x10^3/uL (4.0-11.0)
[2021-04-09 11:37] LABS: PROTHROMBIN TIME PATIENT 14.2 SEC (11.7-14.0)
[2021-04-09 11:46] LABS: ALBUMIN 4.3 g/dL (3.4-5.0); CALCIUM 9.7 mg/dL (8.5-10.1); CREATININE 1.1 mg/dL (0.7-1.3); POTASSIUM 4.1 mmol/L (3.5-5.1)
--- NOTE | 2021-04-09 17:39 | RAD ---
XR CHEST 2V History: Preop shoulder replacement Comparison: 03/21/2019 Technique: PA and lateral chest radiographs. Findings: The lungs are adequately and symmectrically inflated. No airspace consolidation, pleural effusion or pneumothorax. The cardiomediastinal silhoutte and pulmonary vasculature are within normal limits. Par tially visualized left reverse shoulder arthroplasty. Degenerative changes of the right shoulder and spine. Soft tissues are unremarkable. Impression: 1. No acute cardiopulmonary process. Electronically signed by: Kelvin Rizzo MD (04/09/2021 5:37 PM) [id number]
[2021-04-10 07:18] LABS: HEMOGLOBIN A1C 6.7 % (4.8-5.6)
== END ==
LOC: SURGPAT 09:57
PROVIDERS: ATTEND Orthopaedic Surgery Sports Medicine
DX: Z01.818 Encounter for other preprocedural examination (principal); M25.511 Pain in right shoulder; M19.011 Primary osteoarthritis, right shoulder; M47.819 Spondylosis without myelopathy or radiculopathy, site unspecified
CPT/HCPCS: 36415; 71046; 80048; 82040; 82306; 83036; 85025; 85610; 85651; 85730; 87641; 93005

== ENCOUNTER 2021-04-16 08:16 | Inpatient (IN) | payer MEDICARE, BC ==
[2021-04-09 10:43] VITALS: BP 121/75
[~2021-04-16] VITALS: Ht 177.8 cm; Wt 101.5 kg
[~2021-04-16 08:16] MED LIST changes: +ACETAMINOPHEN 500 MG TABLET PO PRN; +HYDROmorphone 2 MG/ML INJ. IVP PRN; +IV RINGERS,LACTATED 1000ML 1,000 ML IV SCH; +MELOXICAM 7.5 MG TABLET PO PRN; +MORPHINE SULFATE 5 MG, KETOROLAC 30MG VIAL 30 MG, ROPIVacaine 0.5% PF 60 ML, EPINEPHrin... INT ART ONE; +PROCHLORPERAZINE 10 MG/2 ML VIAL. IVP PRN; +TRANEXAMIC ACID 1,000 MG in IV NS 50ML -- 1ST BAG INJ ONE; +TRANEXAMIC ACID 1,000 MG in IV NS 50ML -- 2ND BAG INJ ONE; +fentaNYL PF VIAL 100 MCG/2 ML VIAL IVP PRN
[2021-04-16] MEDS ORDERED: PROPOFOL 10 MG/ML (20ML) VIAL. IV ONE (08:38)
[2021-04-16] MEDS ORDERED: DEXAMETHASONE SOD PHOS 4 MG/ML VIAL ONE (08:38)
[2021-04-16] MEDS ORDERED: ONDANSETRON PF 4 MG/2 ML VIAL. ONE (08:38)
[2021-04-16] MEDS ORDERED: LIDOCAINE 2% PF 5 ML VIAL. ONE (08:38)
[2021-04-16] MEDS ORDERED: ROCURONIUM 50 MG/5 ML VIAL. ONE ×2 (08:38→11:06)
[2021-04-16] MEDS ORDERED: fentaNYL PF VIAL 100 MCG/2 ML VIAL ONE ×3 (08:39→14:10)
[2021-04-16] MEDS ORDERED: GLYCOPYRROLATE 1 MG/5 ML VIAL. ONE (08:39)
[2021-04-16] MEDS ORDERED: NEOSTIGMINE METHYLSULFATE 5 MG/5 ML SYRINGE. ONE (08:39)
[2021-04-16] MEDS ORDERED: MIDAZOLAM HCL/PF 2 MG/2 ML VIAL. ONE ×2 (08:39→09:08)
[2021-04-16 08:55] VITALS: BP 152/72
[2021-04-16] MEDS ORDERED: ROPIVacaine 0.5% PF 20 ML VIAL. ONE (09:09)
[2021-04-16] MEDS ORDERED: TRANEXAMIC ACID in NS IVPB 50 ML ONE ×2 (09:12→09:13)
[2021-04-16] MEDS ORDERED: LIDOCAINE 1% PF 5 ML VIAL. ONE (09:19)
[2021-04-16] MEDS ORDERED: SEVOFLURANE 61 TO 120 MINUTES. IH ONE (09:21)
[2021-04-16] MEDS ORDERED: MORPHINE SULFATE 2 MG/ML INJ. IV PRN (09:45)
[2021-04-16] MEDS ORDERED: METOCLOPRAMIDE HCL 10 MG/2 ML VIAL. IV PRN (09:45)
[2021-04-16] MEDS ORDERED: CALCIUM CARBONATE 500 MG TAB.CHEW PO PRN (09:45)
[2021-04-16] MEDS: IV NORMAL SALINE 1000ML BAG 1,000 ML IV SCH (09:45)
[2021-04-16] MEDS ORDERED: DEXTROSE 50% 25 GM / 50ML DISP.SYRIN. IV PRN (09:45)
[2021-04-16] MEDS ORDERED: NALOXONE 0.4 MG/ML VIAL. IV PRN (09:45)
[2021-04-16] MEDS ORDERED: PROCHLORPERAZINE 5 MG TABLET. PO PRN (09:45)
[2021-04-16] MEDS ORDERED: ACETAMINOPHEN 325 MG TABLET. PO PRN (09:45)
[2021-04-16] MEDS ORDERED: IV DEXTROSE 5% 250 ML BAG. IV PRN (09:45)
[2021-04-16] MEDS ORDERED: ZOLPIDEM 5 MG TABLET. PO PRN (09:45)
[2021-04-16] MEDS ORDERED: oxyCODONE/APAP 5/325 1 TAB TABLET PO PRN (09:45)
[2021-04-16] MEDS ORDERED: 0.9 % SODIUM CHLORIDE 10 ML DISP.SYRIN. IV PRN (09:45)
[2021-04-16] MEDS ORDERED: SUCCINYLCHOLINE 200 MG/10 ML VIAL. ONE (09:56)
[2021-04-16] MEDS ORDERED: PHENYLEPHRINE in 0.9% NACL PF 1 MG/10 ML SYRINGE. IV ONE (11:13)
[2021-04-16] MEDS ORDERED: PHENYLEPHRINE 10 MG/ML VIAL. ONE ×2 (11:13→11:14)
[2021-04-16] MEDS ORDERED: SUGAMMADEX SODIUM 200 MG/2 ML VIAL. IVP ONE (11:45)
--- NOTE | 2021-04-16 12:50 | PDOC4 ---
Operative Note Operative Note Date of surgery: 04/16/2021 Surgeon: Topher Felipe Senior Credit Analyst: Garo Ramirez Preoperative diagnosis: Right shoulder rotator cuff tear arthropathy Postoperative diagnosis: Same Procedure performed: Right reverse total shoulder arthroplasty Anesthesia: General plus block Blood loss 150 mL Complications: None Components inserted: Tornier reversed to 25 mm baseplate with 36 glenoid sphere, ascend Flex standard PTC stem 3B, 36 mm +6 polyethylene insert Reason for procedure: Patient is a very pleasant 70-year-old gentleman who came to my office requesting a right reverse total shoulder arthroplasty as he had had a fairly good outcome after his left 1. He had tried injections and therapy in the past and despite this his pain was progressive and interfering with his activities of daily living. Therefore we discussed proceeding with a right reverse total shoulder arthroplasty and he wished to proceed. Description of procedure: Patient was greeted the preoperative area by myself or the correct extremity was verified and marked. Is taken to the operative suite and his antibiotics were started as he was brought back. Once in the operating room, he was transferred gently supine to the operating table and secured to the bed with all pressure points padded after successful induction of a general anesthetic. Should be noted he had placement of a regional nerve block by the anesthesiology team prior to coming back. We sat him up in a beachchair positio n with all pressure points well padded including a large pad under his legs, maintaining his C-spine in neutral position. Prep and drape was accomplished in her usual sterile fashion including Ioban at the periphery. We then conducted our standard preoperative timeout. After accomplishing this I palpated marked surface anatomy and chanel a line for my deltopectoral incision and incised skin with a scalpel. I dissected subcutaneous tissue with Metzenbaums, using electrocautery for bleeders. Identified the cephalic vein and deltopectoral interval and bluntly developed this, he had a large amount of adhesions in his subdeltoid space I spent time freeing this up. I placed my emjj-dvd-wyj retractor and incised clavipectoral fascia. I did not identify the biceps tendon in the bicipital groove, it must of ruptured earlier. I opened the bicipital groove and took down the subscapularis, using #2 Ethibond for tag sutures as I proceeded. I open the rotator interval and again noted no biceps tendon. After this I was able to dislocate the shoulder in place retractor medially and find my appropriate starting position. I advanced the guide grant down and then pinned my cutting block in place and made my proximal humeral cut. I delivered this bony piece from the operative field as well as the cutting jig. Prior to making my cut I had taken down osteophytes and spent time appreciating his anatomy. After this, we began sounding and then broaching to the above size which gave a good fit. We then placed our manhole cover on the stem and I proceeded to reposition the arm using an anterior glenoid retractor and a posterior 1. I then perform my circumferential release with a scalpel. I repositioned my retractors and excised the degenerative labrum. I then identified my appropriate starting point with the guide and advanced my pin. I removed my pin and then measured to double check my depth. I readvanced my pin and then began reaming taking care to remove the loose bony debris and soft tissues. After this I thoroughly irrigated and then drilled a hole for my baseplate and then irrigated some more. I then remove the pin and impacted my place plate into position. I was able to get 3 screws with good purchase, the posterior most screw was not going to be long enough. After this, I impacted my glenoid sphere into position and secured it with the central screw. I then redislocated the proximal humerus and then remove the manhole cover and placed my eccentric baseplate followed by my trial polyethylene and then reduced the shoulder. He had great stability and range of motion. I redislocated the shoulder and remove the trial components and then assembled the final components on the back table. I placed #2 Ethibond leaving a loop on the other side of the humerus to go around my stem to repair the subscapularis. I thoroughly irrigated the operative field and humeral canal at this point. I then impacted my final components in position and reduced the shoulder. He had great range of motion and stability. I then reapproximated the subscapularis to the bone tunnels. I reinforce his by closing the rotator interval with #2 Ethibond as well. The deltopectoral interval was closed with running 0 Vicryl. Inverted interrupted 2-0 Vicryl was used for subcutaneous tissue and 4 oh strata fix for skin. Prior to wound closure all counts correct x2. No complications. Postoperative plan will be to admit him to the floor, he received PT OT and IV pain medicine as well as postoperative antibiotics. TOPHER FELIPE II, MD Apr 16, 2021 12:50
[2021-04-16] MEDS ORDERED: SEVOFLURANE > 120 MINUTES. IH ONE (13:05)
[2021-04-16] MEDS ORDERED: MORPHINE SULFATE 2 MG/ML INJ. ONE (13:16)
[2021-04-16] MEDS: MORPHINE SULFATE 2 MG/ML INJ. IVP PRN ×2 (13:20→13:31)
[2021-04-16] MEDS: fentaNYL PF VIAL 100 MCG/2 ML VIAL IVP PRN ×3 (13:30→14:14)
--- NOTE | 2021-04-16 13:50 | RAD ---
XR SHOULDER_RIGHT 2+ VIEWS Clinical Indication: Reason: POST OP / Spl. Instructions: True AP of scapula and outlet view, do not move arm / History: Comparison: Right shoulder, 3 views 03/18/2021. Findings: There is reverse shoulder arthroplasty. The alignment is anatomic. No acute fracture is seen. There i s subcutaneous air. There are low lung volumes. The right upper lung is clear. There is AC arthropath y. IMPRESSION: Post reverse shoulder arthroplasty. No acute fracture. Electronically signed by: David Bone MD (04/16/2021 1:48 PM) [id number]
[2021-04-16 14:54] VITALS: BP 122/53
[2021-04-16] MEDS: oxyCODONE/APAP 7.5/325 1 TAB TABLET PO PRN ×2 (15:39→18:42)
[2021-04-16] MEDS: FERROUS SULFATE 325 MG TABLET. PO SCH (17:58)
[2021-04-16 19:16] VITALS: BP 140/88
[2021-04-16] MEDS: LOPERAMIDE 2 MG CAPSULE PO SCH (20:54)
[2021-04-16] MEDS ORDERED: TAMSULOSIN 0.4 MG CAP.ER.24H. PO SCH (21:00)
[2021-04-16] MEDS ORDERED: ATORVASTATIN CALCIUM 40 MG TABLET. PO SCH (21:00)
[2021-04-16] MEDS ORDERED: rOPINIRole 1 MG TABLET. PO SCH (21:00)
[2021-04-16 23:00] VITALS: BP 130/63
[2021-04-17] MEDS: oxyCODONE/APAP 7.5/325 1 TAB TABLET PO PRN ×4 (00:07→14:05)
[2021-04-17 03:00] VITALS: BP 141/66
[2021-04-17 03:24] LABS: HEMATOCRIT 32.1 % (39.0-53.0); HEMOGLOBIN 11.3 g/dL (13.0-17.5)
[2021-04-17] MEDS ORDERED: MAGNESIUM HYDROXIDE 2,400 MG/30 ML ORAL.SUSP. PO PRN (06:00)
[2021-04-17 07:00] VITALS: BP 135/57
[2021-04-17] MEDS ORDERED: PANTOPRAZOLE 40 MG TABLET.DR. PO SCH (07:30)
[2021-04-17] MEDS: FERROUS SULFATE 325 MG TABLET. PO SCH (08:00)
[2021-04-17] MEDS: LOPERAMIDE 2 MG CAPSULE PO SCH (08:01)
[2021-04-17] MEDS ORDERED: SENNOSIDES/DOCUSATE 8.6/50MG TABLET. PO SCH (09:00)
[2021-04-17] MEDS ORDERED: LOSARTAN POTASSIUM 50 MG TABLET. PO SCH (09:00)
[2021-04-17] MEDS ORDERED: MULTIVITAMIN with MINERAL TABLET. PO SCH (09:00)
--- NOTE | 2021-04-17 09:03 | DISCH ---
DISCHARGE INSTRUCTIONS Condition on Discharge Condition on Discharge: Stable Activity After Discharge Activity Instructions for Disc: Activity as tolerated, Other ROM activity Other activity instructions: arm to remain in sling Bathing Instructions: Shower-keep dressing dry, No Tub Bath until see Lifting Instructions after Dis: No heavy lifting, No pulling or pushing, Do not lift >10 pounds Exercise Instruction after Dis: Exercise per therapy Driving Instructions after Dis: Do not drive Weight Bearing Status after Di: Non weight bearing Diet after Discharge Diet after Discharge: Regular Diet Texture: Regular Liquid Texture: Thin Liquid Swallowing Supervision: None needed Wound Incision Care Wound/Incision Care: Ice to area for comfort, Keep wound/cast CDI, Change dressing, Do not change dressing Contacting the DRAscencion after DC Call your doctor for: Concerns you may have Follow-Up Follow up with: Rosy in 2wks Treatment/Equipment after DC Adaptive Equipment Issued: None FLOYD FELIPE II, MD Apr 17, 2021 09:03
[2021-04-17] MEDS: IV NORMAL SALINE 1000ML BAG 1,000 ML IV SCH (09:45)
[2021-04-17 11:00] VITALS: BP 133/67
--- NOTE | 2021-04-17 14:46 | NUR ---
SS following for discharge planning. SS reviewed pt chart and discussed with pt RN. Pt is from home with spouse and is currently on room air. COVID19 negative on rapid test. Pt had surgery with ortho on 04/16/2021. Discharge order on the chart for home with self care.
[2021-04-17 15:00] VITALS: BP 122/50
[2021-04-17] MEDS ORDERED: BISACODYL 10 MG SUPP.RECT. PR PRN (16:00)
--- NOTE | 2021-04-17 16:21 | NUR ---
Discharge Note: PT DISCHARGED HOME WITH SELF CARE. PT LEFT FACILITY VIA PRIVATE VEHICLE WITH AT 1610. PT STABLE AND ALERT UPON DISCHARGE. PT PIV REMOVED FROM L HAND WITHOUT COMPLICATION, BANDAGE APPLIED. PT EDUCATED ABOUT DISCHARGE INSTRUCTIONS, DISCHARGE MEDICATIONS, SURGICAL DRESSING INSTRUCTIONS, AND FOLLOW-UP CARE INSTRUCTIONS. NO CONCERNS VOICED AT THIS TIME. PT LEFT WITH ALL PERSONAL BELONGINGS. CARLOS SPRING Discharge instructions and discharge home medications reviewed with Patient and a copy given. All questions have been answered and understanding verbalized.
--- NOTE | 2021-04-18 15:09 | PATHOLOGY ---
[facility] Accession Number: [id number] . 01 Material submitted: . shoulder - RIGHT SHOULDER BONE AND TISSUE. Modifiers: right . 01 Clinical history: . RIGHT SHOULDER PAIN RIGHT REVERSAL SHOULDER ARTHROPLASTY . 02 Diagnosis: Segment of bone and cartilage, right reverse shoulder arthroplasty: - Advanced degenerative arthritis, with focal subarticular fibrosis and bony sclerosis. (J[facility]; 04/18/2021) QTP 04/18/2021 0943 Local . 02 Electronically signed: . Epi Millan MD, Pathologist NPI- [id number] . 01 Gross description: . The specimen is received in formalin, labeled "Corey Molina, right shoulder bone and tissue". Received is a dome-shaped segment of bone measuring 5.3 x 5.1 x 1.5 cm in greatest dimensions. The articular surface is light lockett-pink to dark lockett-red, smooth to roughened, and with signs of eburnation. Sectioning reveals light lockett-yellow and focally hemorrhagic cut surfaces with no grossly distinct nodules or lesions. The specimen is submitted representatively in cassette A1, following decalcification.([facility]; 04/16/2021) [facility] 04/16/2021 1723 Local . 02 Pathologist provided ICD-10: M19.011 . 02 CPT . 651658, [id number] Specimen Comment: A courtesy copy of this report has been sent to [phone], [phone]- Specimen Comment: [id number] Specimen Comment: Report sent to / DR ZAMBRANO Performed at: [address], [place], [place] [id number] MD Dwight Coats MD Phone: [phone] Performed at: 02 [facility] [address] [place], [place] [id number] MD Epi Millan MD Phone: [phone]
== END 2021-04-17 16:25 | disposition home or self-care (01) | DRG 483 ==
LOC: SURG 08:16 → 2 NORTH 09:45 → UNDODISIN 04-17 13:35
PROVIDERS: ADMIT Orthopaedic Surgery Sports Medicine; ATTEND Orthopaedic Surgery Sports Medicine
PROC: 3E0T3BZ Introduction of Anesthetic Agent into Peripheral Nerves and Plexi, Percutaneous Approach (ICD-10-PCS; 2021-04-16)
PROC: 0RRJ00Z Replacement of Right Shoulder Joint with Reverse Ball and Socket Synthetic Substitute, Open Approach (ICD-10-PCS; principal; 2021-04-16 10:00)
DX: M75.101 Unspecified rotator cuff tear or rupture of right shoulder, not specified as traumatic (principal); M12.811 Other specific arthropathies, not elsewhere classified, right shoulder; Z20.822 Contact with and (suspected) exposure to COVID-19
CPT/HCPCS: 36415; 73030; 85014; 85018; 86850; 86900; 86901; 88304; 88311; A4223; A4314; A4452; A4565; A4930; A6223; A6253; A6402; A6550; C1776; J0171; J0330; J0690; J1100; J1885; J2250; J2270; J2370; J2405; J2704; J2710; J2795; J3010; J3490; 97110-GP; 97116-GP; 97535-GO; G0378